=== PATIENT | male | born 1970 | race Caucasian/White ===

== ENCOUNTER 2016-11-09 12:49 | Inpatient (IN) | payer MEDICAID ==
[~2016-11-09] VITALS: Ht 172.7 cm; Wt 95.0 kg
[2016-11-09] MEDS ORDERED: SODIUM CHLORIDE 0.9% 1L BAG IV* STA (13:23)
[2016-11-09] MEDS ORDERED: VANCOMYCIN 1 GM (PMX) 250 ML IVPB STA (13:23)
[2016-11-09] MEDS ORDERED: morphine 4 MG/ML VIAL IV STA (13:23)
[2016-11-09] MEDS ORDERED: PIPER-TAZO 3.375 GM IV (PMX) 100 ML IVPB STA (13:23)
[2016-11-09] MEDS ORDERED: ONDANSETRON 4 MG INJ IV STA (13:23)
[2016-11-09] MEDS ORDERED: LOSA25TA5 PO (14:04)
[2016-11-09] MEDS ORDERED: ASPI-664 PO (14:04)
[2016-11-09 14:10] LABS: ADD SCAN DIFF NO
--- NOTE | 2016-11-09 14:10 | RADRPT ---
PROCEDURE: XR Chest. CLINICAL INDICATION: Sepsis. TECHNIQUE: Single frontal view of the chest was obtained COMPARISON: None FINDINGS: The soft tissues are normal. See there are osteophytes in the thoracic spine. The heart is enlarge d. The cardiomediastinal silhouette and hilar structures are normal. The pulmonary vasculature is n ormal. There is a left-sided aorta. The lungs are clear. The costophrenic angles are normal. IMPRESSION: 1. Cardiomegaly. 2. Spondylosis of the thoracic spine. RPTAT:AAJJ Physician Danni Date Time Electronically viewed and signed by Physician Danni on 11/09/2016 14:10 /
[2016-11-09 14:11] LABS: BASOPHILS % 0.4 % (0.0-2.0); EOSINOPHILS # 0.2 10^3/ul (0.0-0.5); HEMOGLOBIN 11.3 g/dl (14.0-18.0); LYMPHOCYTES # 1.7 10^3/ul (0.8-2.9); LYMPHOCYTES % 19.4 % (15.0-51.0); MEAN CORPUSCULAR HEMOGLOBIN 26.9 pg (29.0-33.0); MEAN CORPUSCULAR HGB CONC 33.2 g/dl (32.0-37.0); MONOCYTE # 0.8 10^3/ul (0.3-0.9); MONOCYTES % 9.6 % (0.0-11.0); NEUTROPHIL # 5.8 10^3/ul (1.6-7.5); NEUTROPHILS % 67.9 % (39.0-77.0); PLATELET COUNT 228 10^3/UL (140-415); RED CELL DISTRIBUTION WIDTH 13.6 % (11.5-14.5); WHITE BLOOD COUNT 8.6 10^3/ul (4.8-10.8)
[2016-11-09 14:25] LABS: ALBUMIN 3.6 g/dl (3.3-4.9); CHLORIDE 103 mmol/L (97-110); INR 1.18; PROTIME 15.1 Sec (12.2-14.2); PT RATIO 1.2
[2016-11-09 14:26] LABS: POTASSIUM 3.7 mmol/L (3.5-5.1); SODIUM 140 mmol/L (135-144)
[2016-11-09 14:28] LABS: ALKALINE PHOSPHATASE 125 IU/L (42-121); ANION GAP 15 (8-16); ASPARTATE AMINO TRANSFERASE 20 IU/L (15-46); BILIRUBIN,INDIRECT 0.3 mg/dl (0-1.1); BILIRUBIN,TOTAL 0.3 mg/dl (0.2-1.3); BLOOD UREA NITROGEN 15 mg/dl (7-20); CARBON DIOXIDE 26 mmol/L (21-31); CREATININE 1.49 mg/dl (0.61-1.24); GLUCOSE 102 mg/dl (70-220); TOTAL PROTEIN 7.6 g/dl (6.1-8.1)
[2016-11-09 14:29] LABS: ALANINE AMINOTRANSFERASE 26 IU/L (13-69); CALCIUM 9.1 mg/dl (8.4-10.2)
[2016-11-09 14:30] LABS: PARTIAL THROMBOPLASTIN TIME 126.1 Sec (25.0-35.0)
[2016-11-09] MEDS ORDERED: ACETAMINOPHEN 325 MG TAB PO PRN (14:30)
[2016-11-09] MEDS ORDERED: ONDANSETRON 4 MG INJ IV PRN (14:30)
[2016-11-09 14:45] LABS: TROPONIN-I < 0.012 ng/ml (0.00-0.12)
--- NOTE | 2016-11-09 15:22 | ERA ---
ER Documentation Chief Complaint Date/Time DATE: 11/09/16 TIME: 15:18 Chief Complaint right leg pain ( varicose veins) HPI Patient is a 46-year-old male with hypertension who presents with bilateral lower extremity ulcers. The patient has had these for years but they are worsening. He has tried penicillin in the past without help. He has arterial insufficiency. He was seen by the [place] [facility] and had arterial and venous ultrasounds done which showed arterial insufficiency and chronic partial DVT. There is significant pain and surrounding redness. ROS All systems reviewed and are negative except as per history of present illness. Medications Home Meds Reported Medications Losartan Potassium* (Losartan Potassium*) 25 Mg Tablet, 25 MG PO DAILY, TAB 11/09/16 Aspirin (Low Dose Aspirin) 81 Mg Tablet.dr, 81 MG PO DAILY, #30 TAB 11/09/16 Allergies Allergies: Coded Allergies: No Known Allergy (Unverified , 11/09/16) PMhx/Soc Hx Cardiac Disorders: Yes Hx Alcohol Use: No Hx Substance Use: No Hx Tobacco Use: No FmHx Family History: No diabetes Physical Exam Vitals Vital Signs Date Time Temp Pulse Resp B/P Pulse Ox O2 Delivery O2 Flow Rate FiO2 11/09/16 12:51 98.5 76 19 191/91 98 Physical Exam Const: No acute distress Head: Atraumatic Eyes: Normal Conjunctiva ENT: Normal External Ears, Nose and Mouth. Neck: Full range of motion..~ No meningismus. Resp: Clear to auscultation bilaterally Cardio: Regular rate and rhythm, no murmurs Abd: Soft, non tender, non distended. Normal bowel sounds Skin: Significant and large arterial insufficiency ulcers to the bilateral lower extremities right greater than left, there is surrounding erythema, the wounds are deep and go down to soft tissue and potentially even bone Back: No midline or flank tenderness Ext: No cyanosis, or edema Neur: Awake and alert Psych: Normal Mood and Affect Result Diagram: 11/09/16 1340 11/09/16 1340 Results 24 hrs Laboratory Tests Test 11/09/16 13:40 White Blood Count 8.610^3/ul Red Blood Count 4.2010^6/ul Hemoglobin 11.3g/dl Hematocrit 34.0% Mean Corpuscular Volume 81.0fl Mean Corpuscular Hemoglobin 26.9pg Mean Corpuscular Hemoglobin Concent 33.2g/dl Red Cell Distribution Width 13.6% Platelet Count 00676^3/UL Mean Platelet Volume 10.0fl Neutrophils % 67.9% Lymphocytes % 19.4% Monocytes % 9.6% Eosinophils % 2.0% Basophils % 0.4% Nucleated Red Blood Cells % 0.0/100WBC Neutrophils # 5.810^3/ul Lymphocytes # 1.710^3/ul Monocytes # 0.810^3/ul Eosinophils # 0.210^3/ul Basophils # 0.010^3/ul Nucleated Red Blood Cells # 0.010^3/ul Prothrombin Time 15.1Sec Prothrombin Time Ratio 1.2 INR International Normalized Ratio 1.18 Activated Partial Thromboplast Time 126.1Sec Sodium Level 140mmol/L Potassium Level 3.7mmol/L Chloride Level 103mmol/L Carbon Dioxide Level 26mmol/L Anion Gap 15 Blood Urea Nitrogen 15mg/dl Creatinine 1.49mg/dl Glucose Level 102mg/dl Lactic Acid Level 2.0mmol/L Calcium Level 9.1mg/dl Total Bilirubin 0.3mg/dl Direct Bilirubin 0.00mg/dl Indirect Bilirubin 0.3mg/dl Aspartate Amino Transf (AST/SGOT) 20IU/L Alanine Aminotransferase (ALT/SGPT) 26IU/L Alkaline Phosphatase 125IU/L Troponin I < 0.012ng/ml Total Protein 7.6g/dl Albumin 3.6g/dl Globulin 4.00g/dl Albumin/Globulin Ratio 0.90 Current Medications Medications (Trade) Dose Ordered Sig/Jacob Route PRN Reason Start Time Stop Time Status Last Admin Dose Admin Sodium Chloride 2950 ml 2,950 ml BOLUS OVER 2 HOURS STAT IV* 11/09/16 13:23 11/09/16 13:25 DC 11/09/16 14:34 Vancomycin HCl 250 ml @ 125 mls/hr ONCE STAT IVPB 11/09/16 13:23 11/09/16 15:22 Piperacillin Sod/ Tazobactam Sod (Zosyn 3.375gm/ 100 ml (Pmx)) 100 ml @ 200 mls/hr ONCE STAT IVPB 11/09/16 13:23 11/09/16 13:52 DC 11/09/16 14:33 Morphine Sulfate (morphine) 4 mg ONCE STAT IV 11/09/16 13:23 11/09/16 13:25 DC 11/09/16 14:33 Ondansetron HCl (Zofran Inj) 4 mg ONCE STAT IV 11/09/16 13:23 11/09/16 13:25 DC 11/09/16 14:33 Ondansetron HCl (Zofran Inj) 4 mg BRIDGE ORDER PRN IV NAUSEA AND/OR VOMITING 11/09/16 14:30 11/10/16 14:29 Acetaminophen (Tylenol Tab) 650 mg ER BRIDGE PRN PO MILD PAIN/FEVER 11/09/16 14:30 11/10/16 14:29 Labetalol HCl (Labetalol) 20 mg ONCE ONCE IV 11/09/16 15:30 11/09/16 15:31 Procedures/MDM Admit MDM: Patient's infectious symptoms have not stabilized and the patient is at risk of rapid decompensation. The patient will be admitted for careful hydration, antibiotic therapy, and infectious source control. Severe Sepsis criteria: Infectious source: Arterial leg ulcers End organ damage indicated by: Lactate 2.0 Sepsis Management: Time of recognition of sepsis: 13:40 Within 3 hours of recognition: Blood cultures x 2 before broad-spectrum antibiotics: Yes 30 ml/kg NS bolus Completed Initial lactate 2.0 Repeat lactate pending Time of recognition of septic shock: No septic shock Septic Shock Assessment: Any lactic acid > 4.0 No Persistent hypotension (SBP < 90 or 40 mmHg drop, MAP < 65) despite 30 mL/kg IV fluid bolus No Volume Re-assessment for Septic Shock (post 30 ml/kg bolus): No septic shock Persistent Hypotension Treatment: Comfort care No Central line Not Required Vasopressor started Not required I considered further perfusion assessment with CVP measurement, SCVO2, bedside ultrasound volume assessment, passive leg raise, trial of further fluid bolus. And proceeded with 30 ml/kg fluid bolus of NSS, broad spectrum antibiotics, and admission. The patient will likely benefit from inpatient prevention center consultation with intense wound care and possibly vascular consultation. Accepting Care Team Current data and ongoing care discussed. Admitting Physician: Dr. Dhaliwal from the panel team Bulb Sorter(s): None Outstanding Data: Culture results and repeat lactic acid Critical Care: Critical care time 35 minutes excluding all billable procedures Emergent fluid management while maintaining close respiratory support. Provision of immediate and broad-spectrum antibiotic therapy. Simultaneous assessment for possible sources in order to direct targeted therapy. Consideration for invasive and chemical support to prevent cardiopulmonary collapse. Departure Diagnosis: Primary Impression: Arterial leg ulcer Additional Impressions: Arterial insufficiency Severe sepsis Anemia Qualified Code: D64.9 - Anemia, unspecified type Condition: NILS Braga MD November 09, 2016 15:22
[2016-11-09] MEDS ORDERED: LABETALOL HCL 20MG INJ IV ONE (15:30)
[2016-11-09] MEDS ORDERED: hydrALAzine 20 MG INJ IV ONE (16:00)
[2016-11-09 16:18] VITALS: TEMP 98.5
[2016-11-09 16:56] VITALS: BP 179/86; RESP 18
[2016-11-09 17:14] VITALS: Ht 172.7 cm; Wt 95.0 kg
[2016-11-09] MEDS ORDERED: VANCOMYCIN IV PER PHARMACY XX SCH (18:00)
[2016-11-09] MEDS ORDERED: hydrALAzine 20 MG INJ IV PRN (18:00)
[2016-11-09] MEDS ORDERED: SOD CHLORIDE 0.9% 1,000 ML IV SCH (18:00)
--- NOTE | 2016-11-09 18:07 | HP ---
Date/Time of Note Date/Time of Note DATE: 11/09/16 TIME: 17:57 Assessment/Plan VTE Prophylaxis VTE Prophylaxis Intervention: heparin Assessment/Plan Assessment/Plan 46 yo M with chronic leg ulcers sent from clinic for 1. Sidra LE infected ulcers with cellulitis 2. Poorly controlled hypertension 3. Chronic partial DVT per report 4. Chronic PAD 5. REX r/o CKD PLAN: * admit for IVF and IV abx / wound cultures / MRI to r/o osteo / ID and podiatry consults * dual therapy antihypertensives / 2D Echo for cardiomegaly * Hold ACEi for now. Renally dose all meds. Serial labs. IVF. * If renal function doesn't improve, consider renal USS and nephro consult * LE venous dopplers / Heparin at prophylactic dose for now,if no urgent intervention will start full dose anticoagulation. PROPHYLAXIS: Heparin / Pepcid HPI/ROS Admit Date/Time Admit Date/Time November 09, 2016 at 14:15 Hx of Present Illness this is a 46 yo M who has had sidra leg ulcers for a while now. He had the first ulcer from an injury at work on his left leg and it has never completely healed since 2000. He was found to heva a DVT in that leg at about the same time. he was place on coumadin which he took for about 4 years after which he developed a spontaneous ulcer in the R leg. He has mainly been treating the ulcers with medications he gets from [place] and they have never completely healed. they get better and breakdown again. He finally went to the [place] [facility] a few days ago where he had venous and arterial studies that revealed a chronic DVT in his left leg and poor arterial supply in both legs. There was also concern that the ulcers were infected and so he was told to come to the ER to be evaluated. he's being admitted forn further workup and mgt. ROS ROS: CONSTITUTIONAL: denies fever, chills, weight loss, weight gain HEENT: denies headaches, any vertigo, any sore throat or rhinorrhea. Eyes: No double or blurred vision or eye pain. CARDIOVASCULAR: no chest discomfort, chest pain, irregular rhythm, tachycardia or diaphoresis. RESPIRATORY: denies cough or shortness of breath or wheezing. GASTROINTESTINAL: The patient denies any nausea, vomiting, diarrhea or abdominal pain. GENITOURINARY: denies dysuria, frequency, urgency or hematuria. NEUROLOGIC: denies weakness, dizziness, focal neurological change or headache. PSYCHIATRIC: denies history of depression in the past, any suicidal ideation. substance abuse. ENDOCRINE: denies polyuria, polydipsia or hot or cold intolerance. HEMATOLOGIC: denies history of easy bruising, anemia or eczema. PMH/Family/Social Past Medical History * Chronic LE ulcers * Prev DVT Past Surgical History * He has had a skin graft Social History Alcohol Use: none Smoking Status: Former smoker (quit 6 smoking) Drug Use: none Exam/Review of Systems Vital Signs Vitals VS - Last 72 Hours, by Label Date Time Temp Pulse Resp B/P Pulse Ox O2 Delivery O2 Flow Rate FiO2 11/09/16 16:56 97.5 87 18 179/86 100 11/09/16 16:18 98.5 82 18 164/92 98 Room Air 11/09/16 15:57 69 18 165/95 98 Room Air 11/09/16 15:31 73 16 185/97 98 Room Air 11/09/16 12:51 98.5 76 19 191/91 98 Vital Signs Date Time Temp Pulse Resp B/P Pulse Ox O2 Delivery O2 Flow Rate FiO2 11/09/16 16:56 97.5 87 18 179/86 100 11/09/16 16:18 Room Air Exam Exam GENERAL APPEARANCE: Well developed, well nourished, in no acute distress. SKIN: Gross inspection of the skin reveals no rashes, ulcerations or petechiae. HEENT: The sclerae were anicteric and conjunctivae were pink and moist. Extraocular movements were intact and pupils were equal, round, and reactive to light Posterior pharynx was clear of erythema or exudate NECK: Supple and symmetric. There was no thyroid enlargement, and no tenderness , or masses were felt. CHEST: Normal AP diameter and movement . LUNGS: Auscultation of the lungs revealed normal breath sounds without any other adventitious sounds or rubs. CARDIOVASCULAR: There was a regular rate and rhythm without any murmurs, gallops , rubs. The carotid pulses were normal and 2+ bilaterally without bruits. Radial pulses were 2+ and symmetric. ABDOMEN: Soft and nontender with normal bowel sounds. No ascites was noted. LYMPH NODES: No lymphadenopathy was appreciated in the neck. MUSCULOSKELETAL: There was no tenderness or effusions noted. Muscle strength and tone were normal. EXTREMITIES: Significant and large arterial insufficiency ulcers to the bilateral lower extremities right greater than left, there is surrounding erythema, the wounds are deep and go down to soft tissue and potentially even bone NEUROLOGIC: Alert and oriented x 3. Normal affect PSYCHIATRIC: Normal mood and affect, not suicidal, not homicidal, no hallucinations, normal insight Labs Result Diagram: 11/09/16 1340 11/09/16 1340 Procedures Procedures Laboratory Tests Test 11/09/16 13:40 11/09/16 15:55 White Blood Count 8.610^3/ul Red Blood Count 4.2010^6/ul Hemoglobin 11.3g/dl Hematocrit 34.0% Mean Corpuscular Volume 81.0fl Mean Corpuscular Hemoglobin 26.9pg Mean Corpuscular Hemoglobin Concent 33.2g/dl Red Cell Distribution Width 13.6% Platelet Count 05616^3/UL Mean Platelet Volume 10.0fl Neutrophils % 67.9% Lymphocytes % 19.4% Monocytes % 9.6% Eosinophils % 2.0% Basophils % 0.4% Nucleated Red Blood Cells % 0.0/100WBC Neutrophils # 5.810^3/ul Lymphocytes # 1.710^3/ul Monocytes # 0.810^3/ul Eosinophils # 0.210^3/ul Basophils # 0.010^3/ul Nucleated Red Blood Cells # 0.010^3/ul Prothrombin Time 15.1Sec Prothrombin Time Ratio 1.2 INR International Normalized Ratio 1.18 Activated Partial Thromboplast Time 126.1Sec Sodium Level 140mmol/L Potassium Level 3.7mmol/L Chloride Level 103mmol/L Carbon Dioxide Level 26mmol/L Anion Gap 15 Blood Urea Nitrogen 15mg/dl Creatinine 1.49mg/dl Glucose Level 102mg/dl Lactic Acid Level 2.0mmol/L 1.4mmol/L Calcium Level 9.1mg/dl Total Bilirubin 0.3mg/dl Direct Bilirubin 0.00mg/dl Indirect Bilirubin 0.3mg/dl Aspartate Amino Transf (AST/SGOT) 20IU/L Alanine Aminotransferase (ALT/SGPT) 26IU/L Alkaline Phosphatase 125IU/L Troponin I < 0.012ng/ml Total Protein 7.6g/dl Albumin 3.6g/dl Globulin 4.00g/dl Albumin/Globulin Ratio 0.90 ER INTERVENTIONS Medications (Trade) Dose Ordered Sig/Jacob Route PRN Reason Start Time Stop Time Status Last Admin Dose Admin Sodium Chloride 2950 ml 2,950 ml BOLUS OVER 2 HOURS STAT IV* 11/09/16 13:23 11/09/16 13:25 DC 11/09/16 14:34 2,950 ML Vancomycin HCl 250 ml @ 125 mls/hr ONCE STAT IVPB 11/09/16 13:23 11/09/16 15:22 DC 11/09/16 15:29 125 MLS/HR Piperacillin Sod/ Tazobactam Sod (Zosyn 3.375gm/ 100 ml (Pmx)) 100 ml @ 200 mls/hr ONCE STAT IVPB 11/09/16 13:23 11/09/16 13:52 DC 11/09/16 14:33 200 MLS/HR Morphine Sulfate (morphine) 4 mg ONCE STAT IV 11/09/16 13:23 11/09/16 13:25 DC 11/09/16 14:33 4 MG Ondansetron HCl (Zofran Inj) 4 mg ONCE STAT IV 11/09/16 13:23 11/09/16 13:25 DC 11/09/16 14:33 4 MG Ondansetron HCl (Zofran Inj) 4 mg BRIDGE ORDER PRN IV NAUSEA AND/OR VOMITING 11/09/16 14:30 11/10/16 14:29 Acetaminophen (Tylenol Tab) 650 mg ER BRIDGE PRN PO MILD PAIN/FEVER 11/09/16 14:30 11/10/16 14:29 Labetalol HCl (Labetalol) 20 mg ONCE ONCE IV 11/09/16 15:30 11/09/16 15:31 DC 11/09/16 15:30 20 MG Hydralazine HCl (Apresoline) 10 mg ONCE ONCE IV 11/09/16 16:00 11/09/16 16:01 DC 11/09/16 15:59 10 MG PROCEDURE: XR Chest. CLINICAL INDICATION: Sepsis. TECHNIQUE: Single frontal view of the chest was obtained COMPARISON: None FINDINGS: The soft tissues are normal. See there are osteophytes in the thoracic spine. The heart is enlarged. The cardiomediastinal silhouette and hilar structures are normal. The pulmonary vasculature is normal. There is a left-sided aorta. The lungs are clear. The costophrenic angles are normal. IMPRESSION: 1. Cardiomegaly. 2. Spondylosis of the thoracic spine. RPTAT:AAJJ Physician Danni Date Time Electronically viewed and signed by Robert Tellez Physician on 11/09/2016 14:10 JM/ CC: NILS BALBUENA MD I reviewed EKG Rate: Within normal limits Rhythm: sinus Note: No ST elevation or depressions noted concerning for acute ischemic event. NALDO CORTEZ November 09, 2016 18:07
[2016-11-09] MEDS: LEVOFLOXACIN 500MG/D5W (PMX) 100 ML IVPB SCH (18:47)
--- NOTE | 2016-11-09 18:59 | RADRPT ---
PROCEDURE: US bilateral lower extremity veins. CLINICAL INDICATION: Bilateral leg pain and swelling. TECHNIQUE: Multiple longitudinal and transverse images of the bilateral lower extremity veins were obtained with campbell scale and color Doppler imaging. The common femoral vein, femoral vein, and popl iteal vein were evaluated. 2D grayscale measurements with compression sonography, color Doppler, and pulsed Doppler with augmentation. COMPARISON: No prior studies are available for comparison. FINDINGS: The right common femoral vein demonstrates normal flow and compressibility. There is partial compre ssibility and partial flow in the upper right femoral vein consistent with chronic thrombus. The ri ght mid and lower femoral vein and right popliteal vein demonstrate normal flow and compressibility. The left common femoral, femoral and popliteal veins are normally compressible throughout. Color fl ow demonstrates normal filling of the vessels. Normal waveforms are visualized and there is normal response to augmentation. IMPRESSION: 1. 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 2. Otherwise normal bilateral lower extremity venous Doppler. RPTAT: QQ .Harjeet Dempsey MD, MD Date Time Electronically viewed and signed by .Harjeet Dempsey MD, on 11/09/2016 18:59 .R/
[2016-11-09] MEDS ORDERED: PENDING SANTYL ORDER FOR WOUND CARE XX PRN (19:00)
--- NOTE | 2016-11-09 19:00 | CONS ---
DATE OF ADMISSION: 11/09/2016 DATE OF CONSULTATION: 11/09/2016 TYPE OF CONSULTATION: Infectious disease. REASON FOR CONSULTATION: Antibiotic management. HISTORY OF PRESENT ILLNESS: Dallas Perez is a 46-year-old male who comes in with right leg pain and is being seen for antibiotic management. His past problems include: 1. Hypertension. 2. Arterial insufficiency. 3. Chronic partial DVT. 4. Congestive heart failure. 5. Renal insufficiency. 6. Bilateral lower extremity infected ulcers with cellulitis. The patient is followed by Dr. Hien hernandez in podiatric consultation. As noted, he comes in with significant pain and redness in the lower extremities. PAST MEDICAL HISTORY: Operations as outlined. FAMILY HISTORY: Noncontributory. SOCIAL HISTORY: He does not smoke, drink, or abuse drugs. ALLERGIES: NO KNOWN ALLERGIES. NONE TO PENICILLIN, SULFA, OR FOODS. MEDICATIONS: Per chart. REVIEW OF SYSTEMS: As per HPI. PHYSICAL EXAMINATION: GENERAL: The patient is a well-developed, well-nourished male who is complaining of leg pa in, otherwise in no acute distress. VITAL SIGNS: Stable. He is afebrile. SKIN: Significant large arterial insufficiency ulcers in both lower extremities, right greater than left, with surrounding erythema. HEENT: Within normal limits. NECK: Supple. LYMPH NODES: None palpable. CHEST: Decreased breath sounds at the bases. HEART: Without murmur or gallop. ABDOMEN: Soft, nontender without organosplenomegaly or masses. EXTREMITIES: As noted, bilateral cellulitis. He has wounds that are quite deep and go down to the soft tissue and possibly bone. BACK: Without flank tenderness. RECTAL AND GENITAL: Deferred. NEUROLOGIC: No focal neurological abnormalities. ANCILLARY LABORATORY DATA: White count 8.6, H and H 11.3 and 34, platelet count 228. BUN and creat inine 15/1.49. IMPRESSION AND PLAN: The patient was started on vancomycin and Zosyn for bilateral lower extremity cellulitis. He has no evidence of pneumonia. I concur with this choice. If there is anything to c ulture the wounds, and obviously that should be done, a wound culture has been ordered. MRIs of the left and right feet have also been ordered. I will dictate my findings to the hospitalist and also to Dr. Lamas. Dictated By: SANDIP STARR MD, JD/BARRY Conf#: [id number] [facility]#: [id number] CC: GOLD LAMAS DPM; NALDO CORTEZ MD;*End*
[2016-11-09 20:12] VITALS: BP 167/81; RESP 18
[2016-11-09] MEDS ORDERED: HEPARIN 5,000 UNIT/0.5 ML VIAL SC SCH (21:00)
[2016-11-09] MEDS: HYDROmorphONE 1 MG/ML SYG IV PRN (21:04)
[2016-11-09] MEDS: DOCUSATE SODIUM 250 MG CAP PO SCH (21:05)
[2016-11-09] MEDS: METOPROLOL 25 MG TAB PO SCH (21:05)
[2016-11-09] MEDS: NIFEdipine (XL) 30 MG TAB PO SCH (21:06)
[2016-11-09 22:00] VITALS: BP 155/75
[2016-11-09] MEDS ORDERED: VANCOMYCIN 1.25 GM in SOD CHLORIDE 0.9% 250 ML IVPB SCH (23:00)
[2016-11-10] MEDS: HYDROmorphONE 1 MG/ML SYG IV PRN ×4 (00:54→20:39)
[2016-11-10 03:34] LABS: ADD UMIC NO; URINE BILIRUBIN (Dip) NEGATIVE (NEGATIVE); URINE BLOOD (Dip) NEGATIVE (NEGATIVE); URINE COLOR LT. YELLOW (YELLOW); URINE GLUCOSE (Dip) NEGATIVE (NEGATIVE); URINE KETONES (Dip) NEGATIVE (NEGATIVE); URINE LEUKOCYTE ESTERASE (Dip) NEGATIVE (NEGATIVE); URINE NITRITE (Dip) NEGATIVE (NEGATIVE); URINE TOTAL PROTEIN (Dip) NEGATIVE (NEGATIVE); URINE UROBILINOGEN (Dip) 0.2 E.U./dL (0.1-1.0)
[2016-11-10] MEDS: HYDROCODONE/APAP (7.5/325) TAB PO PRN (04:05)
[2016-11-10 04:19] LABS: BARBITURATES Negative (NEGATIVE); BENZODIAZEPINES Negative (NEGATIVE); CANNABINOIDS Negative (NEGATIVE); COCAINE Negative (NEGATIVE); OPIATES Positive (NEGATIVE)
[2016-11-10 06:20] LABS: ADD SCAN DIFF NO
[2016-11-10 06:25] LABS: BASOPHILS % 0.2 % (0.0-2.0); EOSINOPHILS # 0.2 10^3/ul (0.0-0.5); HEMOGLOBIN 10.2 g/dl (14.0-18.0); LYMPHOCYTES # 1.5 10^3/ul (0.8-2.9); LYMPHOCYTES % 17.2 % (15.0-51.0); MEAN CORPUSCULAR HEMOGLOBIN 26.4 pg (29.0-33.0); MEAN CORPUSCULAR HGB CONC 31.9 g/dl (32.0-37.0); MEAN CORPUSCULAR VOLUME 82.9 fl (82.0-101.0); MEAN PLATELET VOLUME 9.8 fl (7.4-10.4); MONOCYTE # 0.8 10^3/ul (0.3-0.9); MONOCYTES % 8.5 % (0.0-11.0); NEUTROPHIL # 6.4 10^3/ul (1.6-7.5); NEUTROPHILS % 71.5 % (39.0-77.0); PLATELET COUNT 196 10^3/UL (140-415); RED BLOOD COUNT 3.86 10^6/ul (4.70-6.10); RED CELL DISTRIBUTION WIDTH 14.3 % (11.5-14.5); WHITE BLOOD COUNT 8.9 10^3/ul (4.8-10.8)
[2016-11-10 06:57] LABS: INR 1.32; PROTIME 16.5 Sec (12.2-14.2); PT RATIO 1.3
[2016-11-10 07:08] LABS: PARTIAL THROMBOPLASTIN TIME 117.6 Sec (25.0-35.0)
[2016-11-10 07:17] LABS: THYROID STIMULATING HORMONE 2.03 MIU/L (0.465-4.680)
[2016-11-10 07:24] LABS: CALCIUM 8.6 mg/dl (8.4-10.2); CHOL/HDL RATIO 4.8 RATIO; CREATININE 1.43 mg/dl (0.61-1.24); MAGNESIUM 1.8 mg/dl (1.7-2.5); PHOSPHORUS 3.9 mg/dl (2.5-4.9); POTASSIUM 4.2 mmol/L (3.5-5.1)
[2016-11-10 07:25] VITALS: BP 163/80; RESP 16
[2016-11-10] MEDS: ASPIRIN (EC) 81 MG TAB PO SCH (08:49)
[2016-11-10] MEDS: FAMOTIDINE 20 MG TAB PO SCH (08:49)
[2016-11-10] MEDS: METOPROLOL 25 MG TAB PO SCH ×2 (08:50→20:39)
[2016-11-10] MEDS: NIFEdipine (XL) 30 MG TAB PO SCH ×2 (08:50→20:39)
--- NOTE | 2016-11-10 11:38 | CONS ---
DATE OF ADMISSION: 11/09/2016 DATE OF CONSULTATION: 11/10/2016 TYPE OF CONSULTATION: Nephrology. REASON FOR CONSULTATION: Acute kidney injury, renal insufficiency. PHYSICIAN REQUESTING CONSULT: Dr. Dhaliwal. HISTORY OF PRESENT ILLNESS: This is a 46-year-old male with a past medical history of poorly contro lled hypertension, history of chronic lower extremity ulcers, and history of deep venous thrombosis who presents to [facility] for evaluation of worsening of his lower extremity. Th e patient was recently seen in clinic, was noted to have infected ulcers and cellulitis. He was bro ught to the [facility] for evaluation. Patient was subsequently admitted to [facility]. The patient states that he has had a long history of ulcer formations dating back to 4 or 5 ye ars ago where he was treated previously in [place]. The patient said the ulcers would improve; howev er they would then reform. The patient also revealed having chronic DVT and previously being on ant icoagulation. Upon admission to the hospital, the patient has been stable. There have been no reports of hemoptys is, hematemesis or hematochezia. In terms of the patient's renal history, the patient states that he is aware he has some renal insuf ficiency. He states that he has longstanding hypertension. Denies any recent episodes of rashes, a ny frothy urine, any contrast exposure or any NSAID use. The patient does admit to having a history of ulcers. The patient is taking Losartan in an outpatient setting. No other events noted. PAST MEDICAL HISTORY: History of hypertension, history of deep venous thrombosis, history of lower extremity ulcers. FAMILY HISTORY: Noncontributory. SOCIAL HISTORY: Does not drink, smoke or do drugs. MEDICATIONS: Have been reviewed. ALLERGIES: NO KNOWN DRUG ALLERGIES. REVIEW OF SYSTEMS: A 14-point review of systems was conducted. Pertinent positives in HPI, otherwi se negative. PHYSICAL EXAMINATION: VITAL SIGNS: Blood pressure 160/80, respirations 16, pulse 81, temperature 98.6. HEENT: Normocephalic. Pupils are reactive to light. NECK: Supple. HEART: Regular rate. LUNGS: Show diminished breath sounds at base. ABDOMEN: Soft, nontender to palpation. No rebound or guarding. EXTREMITIES: Noted with trace edema. Dressing over anterior bilateral wounds that are clean, dry, intact. NEUROLOGIC: No focal deficits. DERMATOLOGIC: No rashes. LABORATORY DATA: Shows sodium 141, potassium 4.2, chloride 112, BUN 14, creatinine 1.43. White cou nt 8.9, hemoglobin 10.2, hematocrit 32.0, platelet count 196. Urinalysis is bland. IMAGING STUDIES: Reviewed. ASSESSMENT AND PLAN: This is a 46-year-old male who presents with: 1. Renal insufficiency, likely chronic kidney disease due to hypertensive nephrosclerosis. The pat ient has a longstanding history of poorly controlled hypertension. The possibility of an acute glom erulonephritis, vasculitis or interstitial nephritis is less likely given the initial bland urinalys is. However, given the longstanding history of ulcers, a full evaluation needs to be done. Plan wo uld be to check a renal ultrasound to evaluate renal parenchyma. Will check UA with microanalysis t o see if there is any evidence of active sediment. Will check a protein/creatinine ratio, albumin/c reatinine ratio. Will also check a PTH, vitamin D25 level. Would otherwise continue supportive car e, renally dose meds, avoid nephrotoxins. 2. Hypertension. Blood pressure is currently elevated. Continue current blood pressure regimen. I would defer DEANNA inhibitor or ARB at this time. 3. Mineral bone disorder. We will check PTH, vitamin D25 level. Monitor calcium and phosphorus le vels. No need for phosphate binders at this time. 4. Anemia, likely of chronic disease. Monitor hemoglobin and hematocrit levels. 5. Bilateral lower extremity infected ulcer, cellulitis. Continue current antibiotic regimen. Fur ther evaluation including an MRI will be performed. Follow up with ID and podiatry. 6. History of deep venous thrombosis. Continue current medical management. 7. History of peripheral arterial disease. Continue current treatment plan. Follow up with podiat ry. Continue aspirin. Thank you, Dr. Dhaliwal, for this interesting consultation. It will be a pleasure to follow patient with you throughout the hospital course. Dictated By: JEREMIAS LEARY/BARRY Conf#: [id number] DID#: [id number]
--- NOTE | 2016-11-10 11:57 | RADRPT ---
PROCEDURE: US Renal CLINICAL INDICATION: Acute renal insufficiency. TECHNIQUE: Multiple sonographic images of the kidneys and bladder were obtained. Evaluation of th e kidneys and bladder was performed as well with campbell scale and color and Doppler evaluation using a curved array transducer. The images were reviewed on a high-resolution PACS workstation. COMPARISON: No prior studies are available for comparison. FINDINGS: The right kidney measures 10.6 cm. The left kidney measures 10.9 cm. There is normal echogenicity within the parenchyma of the kidneys bilaterally. There is no mass, calculus, or obstructive uropathy. No perinephric fluid collection is seen. Evaluation of the urinary bladder is unremarkable. IMPRESSION: 1. Unremarkable renal ultrasound. RPTAT: [facility] Physician Ian Date Time Electronically viewed and signed by Physician Ian on 11/10/2016 11:56 /
--- NOTE | 2016-11-10 13:29 | RADRPT ---
PROCEDURE: MRI OF THE RIGHT AND LEFT LOWER EXTREMITY CLINICAL INDICATION: Right and left lower extremity pain and swelling, ulcerations, concern for oste omyelitis TECHNIQUE: Multiple MRI images were obtained utilizing multiple sequences in multiple planes. Image s were interpreted on a high-resolution PACS system. COMPARISON: None available FINDINGS: Right lower extremity: A marker has been placed along the medial soft tissues approximately 6 cm above the tibiotalar joint . There is a large medial ulceration measuring 4 cm in anteroposterior dimension and 6 cm in supero inferior dimension with adjacent soft tissue swelling but no drainable fluid collection. There is f airly significant soft tissue swelling extending towards the ankle. There is no evidence of underlying osteomyelitis. There is no acute fracture. There is no evidence of tendon tear. Left lower extremity: A marker has been placed along the posterior soft tissues near the gastrocnemius myotendinous juncti on about 12 cm above the tibiotalar joint. Deep to this marker there is a large skin ulceration lucie suring about 3 cm in mediolateral dimension and 4 cm in superoinferior dimension with adjacent soft tissue swelling but no drainable fluid collection. A marker has been placed along the anteromedial aspect of the left lower extremity about 5 cm above the tibiotalar joint. There is adjacent soft tissue swelling without drainable fluid collection. T he ulceration measures about 3 cm in mediolateral dimension and 3 cm in superoinferior dimension. There is no evidence of underlying osteomyelitis. There is no acute fracture. There is no evidence of tendon tear. IMPRESSION: 1. Bilateral skin ulcerations involving both lower extremities below the knee (3 ulcerations in tot al) as described above. There is adjacent soft tissue swelling without drainable fluid collection. 2. No evidence of underlying osteomyelitis. RPTAT: UU .Archie Blake MD, Date Time Electronically viewed and signed by .Archie Blake MD, MD on 11/10/2016 13:29 .K/
[2016-11-10] MEDS: VANCOMYCIN 2 GM in SOD CHLORIDE 0.9% 500 ML IVPB SCH (14:04)
--- NOTE | 2016-11-10 14:44 | PN ---
DATE: 11/10/2016 SUBJECTIVE: No acute changes. The patient is awake, looks comfortable, no fevers. VITAL SIGNS: Stable. DIAGNOSTICS: Renal ultrasound was unremarkable. MRI of extremities pending. Ultrasound revealed ri ght femoral vein chronic thrombus. Chest x-ray on admission revealed cardiomegaly. ANTIMICROBIALS: The patient is on IV vancomycin and Levaquin. PHYSICAL EXAMINATION: GENERAL: This is a well-developed, well-nourished man who is in no distress. HEENT: Head atraumatic, normocephalic. Sclerae anicteric. Buccal mucosa dry. NECK: Supple, trachea midline. CHEST: Rise symmetrical. Breath sounds diminished to bases. HEART: S1, S2. ABDOMEN: Soft, bowel tones present. EXTREMITIES: Bilateral lower extremities erythema, edema and chronic wounds. ASSESSMENT: 1. Bilateral lower extremities, acute on chronic cellulitis. 2. Acute renal failure, likely on chronic kidney disease, Nephrology on case. 3. History of deep venous thrombosis. 4. Hypertension. 5. Anemia. PLAN: The patient remains stable, pending bilateral lower extremities MRI. Pending wound cultures. Continue on current antimicrobials. Dictated By: MARISELA BYNUM SPORTS NUTRITIONIST for SANDIP PRETTY/BARRY Conf#: [id number] DID#: [id number]
[2016-11-10] MEDS ORDERED: COLLAGENASE 30 GM TUBE TOP PRN (15:00)
[2016-11-10] MEDS: LEVOFLOXACIN 500MG/D5W (PMX) 100 ML IVPB SCH (17:36)
--- NOTE | 2016-11-10 18:15 | PN ---
DATE: 11/10/2016 SUBJECTIVE: No acute events overnight. OBJECTIVE VITAL SIGNS: Stable except the blood pressure systolic is running 155 to 179 systolic over 75 to 82 diastolic PHYSICAL EXAMINATION: GENERAL: The patient lying in bed, answering questions appropriately, in no acute distress. HEENT: Pupils equal, round, reactive to light. Extraocular muscles intact. NECK: Supple, no thyromegaly. LUNGS: Clear to auscultation bilaterally. CARDIOVASCULAR: S1, S2 heard. No rubs or gallops. ABDOMEN: Soft, nontender, nondistended. No rebound or guarding. MUSCULOSKELETAL: There are some large ulcers noted in the bilateral lower extremities, right greate r than left, with surrounding erythema. Wounds are deep and go down to soft tissue and potentially even to the bone. NEUROLOGIC: No focal deficits. LABORATORY DATA: CBC is normal. Basic metabolic panel is normal except the creatinine is 1.43. Ch olesterol panel was normal. Coags show PTT of 117. ASSESSMENT AND PLAN: This is a 46-year-old male coming in with bilateral lower extremity infected u lcers with cellulitis, hypertension and renal insufficiency. 1. Lower extremity cellulitis and ulceration. Get a wound care nurse consult. Continue IV antibio tics as well. Pain control medications as well. Follow up on final culture results. Follow up ID recommendations. 2. Renal insufficiency. Renal function, creatinine slightly elevated. Follow up renal recommendat ions. Monitor BUN and creatinine levels as well. 3. Hypertension. Blood pressure is on the high normal side. Continue current medications. Consid er increasing the dose. He is on beta josé miguel and hydralazine p.r.n. as well, also on nifedipine. Monitor for now. 4. Chronic peripheral artery disease. Again, continue wound care nurse recommendations for #1. Con stud driver vascular surgery consult if not better. 5. Gastrointestinal prophylaxis. Pepcid. 6. Deep venous thrombosis prophylaxis on heparin subQ. Dictated By: THALIA DHALIWAL Conf#: [id number] DID#: [id number]
[2016-11-10] MEDS: COLLAGENASE 30 GM TUBE TOP SCH (19:04)
[2016-11-10 20:22] VITALS: BP 145/77; RESP 18
[2016-11-10] MEDS: DOCUSATE SODIUM 250 MG CAP PO SCH (20:39)
[2016-11-11] VITALS (16 sets, daily range): BP systolic 149–158; BP diastolic 81–83; PULSE 68–80; RESP 15–24
[2016-11-11 00:10] LABS: ADD UMIC YES; URINE BILIRUBIN (Dip) NEGATIVE (NEGATIVE); URINE BLOOD (Dip) TRACE (NEGATIVE); URINE COLOR LT. YELLOW (YELLOW); URINE GLUCOSE (Dip) NEGATIVE (NEGATIVE); URINE KETONES (Dip) NEGATIVE (NEGATIVE); URINE LEUKOCYTE ESTERASE (Dip) NEGATIVE (NEGATIVE); URINE NITRITE (Dip) NEGATIVE (NEGATIVE); URINE TOTAL PROTEIN (Dip) NEGATIVE (NEGATIVE); URINE UROBILINOGEN (Dip) 0.2 E.U./dL (0.1-1.0)
[2016-11-11 00:27] LABS: URINE RBCS NONE SEEN /HPF (0)
--- NOTE | 2016-11-11 05:22 | CONS ---
DATE OF ADMISSION: 11/09/2016 DATE OF CONSULTATION: 11/10/2016 CHIEF COMPLAINT: Bilateral lower extremity ulceration. HISTORY OF PRESENT ILLNESS: This is a 46-year-old gentleman with chronic ulceration who presented t o the emergency room with increasing pain, swelling, and redness. The patient admitted for treatmen t of chronic venous ulcerations now with acute cellulitis and workup for deep infection and osteomye litis. The patient states history of deep vein thrombosis and had been on Coumadin in the past. He presented on vancomycin and Levaquin. PAST MEDICAL HISTORY: Deep vein thrombosis, prior anticoagulation therapy, hypertension, CHF, renal insufficiency, chronic lower extremity ulcerations and inflammation, venous stasis. FAMILY HISTORY: Noncontributory. SOCIAL HISTORY: Denies alcohol or recreational drugs. 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 REVIEW OF SYSTEMS: Swelling to bilateral lower extremity, pain to ulceration of right lower extremi ty. PHYSICAL EXAMINATION: VITAL SIGNS: Temperature 98.1, pulse 89, respiratory rate 18, blood pressure 140/77, pulse ox is 96 on room air. GENERAL: The patient alert, oriented, no acute distress. HEENT: Head is normocephalic, atraumatic. Trachea is midline. PULMONARY: Regular respiration, unlabored. EXTREMITIES: There are ulcerations bilateral lower extremities. Hair is present on bilateral legs. On the left medial, there is an ulceration measuring 5 x 3 cm. On the left lateral, 2 ulcerations approximately 2 cm2. On the right medial ankle, there was an ulceration, 6.3 cm. All wounds have periwound erythema, brawny appearing skin, venous stasis hyperpigmentation, and skin atrophy. There is slough present to the wounds and tenderness with palpation. No signs of lymphangitis. Cellulit is is extending approximately 1 cm from the wounds. The patient has 2+ popliteal, DP pulse bilatera lly. He has 5/5 dorsiflexion, plantar flexion. Normal sensation to tibial nerve distribution. LABORATORY DATA: Blood cultures no growth. WBC 8.9, hemoglobin 10.2, hematocrit 32, platelets 196. Sodium 141, potassium 4.2, chloride 112, CO2 23, BUN 14, creatinine 1.43. Foot MRI shows no evide nce of osteomyelitis. Renal ultrasound unremarkable. Venous ultrasound has a chronic thrombus uppe r right femoral vein. Chest x-ray: Cardiomegaly, spondylosis of the thoracic spine. ASSESSMENT: 1. Venous stasis with ulceration and inflammation. 2. Cellulitis. 3. Pain. 4. Thrombus right femoral vein. PLAN: The patient currently on broad spectrum IV antibiotics, vancomycin, and Levaquin. Obtain art erial noninvasives and may benefit from further diagnostic imaging if any abnormalities to rule out any aortoiliac disease. Recommend daily topical antiseptic precautions, cleansing with diluted Daki n's and application of Santyl ointment. We will await further studies. Thank you for this consultation. Dictated By: GOLD ANGLIN/BARRY Conf#: [id number] DID#: [id number]
[2016-11-11] MEDS: SENNA/DOCUSATE NA (8.6MG/50MG) TAB PO PRN (05:37)
[2016-11-11 06:20] LABS: ADD SCAN DIFF NO
[2016-11-11 06:37] LABS: BASOPHILS % 0.5 % (0.0-2.0); EOSINOPHILS # 0.3 10^3/ul (0.0-0.5); EOSINOPHILS % 3.7 % (0.0-7.0); HEMATOCRIT 34.7 % (42.0-52.0); HEMOGLOBIN 11.3 g/dl (14.0-18.0); LYMPHOCYTES # 1.7 10^3/ul (0.8-2.9); LYMPHOCYTES % 19.3 % (15.0-51.0); MEAN CORPUSCULAR HEMOGLOBIN 26.7 pg (29.0-33.0); MEAN CORPUSCULAR HGB CONC 32.6 g/dl (32.0-37.0); MEAN CORPUSCULAR VOLUME 81.8 fl (82.0-101.0); MEAN PLATELET VOLUME 9.4 fl (7.4-10.4); MONOCYTE # 0.8 10^3/ul (0.3-0.9); MONOCYTES % 8.9 % (0.0-11.0); NEUTROPHIL # 5.8 10^3/ul (1.6-7.5); NEUTROPHILS % 66.9 % (39.0-77.0); PLATELET COUNT 186 10^3/UL (140-415); RED BLOOD COUNT 4.24 10^6/ul (4.70-6.10); RED CELL DISTRIBUTION WIDTH 13.9 % (11.5-14.5); WHITE BLOOD COUNT 8.7 10^3/ul (4.8-10.8)
[2016-11-11 07:24] LABS: CREATININE 1.52 mg/dl (0.61-1.24); POTASSIUM 4.2 mmol/L (3.5-5.1)
[2016-11-11] MEDS: HYDROmorphONE 1 MG/ML SYG IV PRN ×2 (07:26→22:29)
[2016-11-11 07:52] LABS: MAGNESIUM 1.7 mg/dl (1.7-2.5); PHOSPHORUS 4.1 mg/dl (2.5-4.9)
[2016-11-11] MEDS: SODIUM HYPOCHLORITE 1/40% 1L IRRIG IRR SCH (08:51)
[2016-11-11] MEDS: ASPIRIN (EC) 81 MG TAB PO SCH (08:52)
[2016-11-11] MEDS: METOPROLOL 25 MG TAB PO SCH ×2 (08:53→21:01)
[2016-11-11] MEDS: FAMOTIDINE 20 MG TAB PO SCH (08:53)
[2016-11-11] MEDS: NIFEdipine (XL) 30 MG TAB PO SCH ×2 (08:53→21:01)
[2016-11-11] MEDS: COLLAGENASE 30 GM TUBE TOP SCH (08:55)
[2016-11-11] MEDS: HEPARIN 5,000 UNIT/0.5 ML VIAL SC SCH ×2 (08:56→21:05)
--- NOTE | 2016-11-11 09:23 | RADRPT ---
PROCEDURE: US Lower extremity arterial. CLINICAL INDICATION: Bilateral lower extremity ulcers. Peripheral arterial disease. TECHNIQUE: Multiple sonographic images of the bilateral lower extremity arteries was obtained util izing grayscale, color-flow, and doppler imaging. The images were reviewed on a PACS workstation. COMPARISON: Venous ultrasound dated 11/09/2016. FINDINGS: Velocities and waveforms were obtained as described below. RIGHT LEG: Common femoral artery: 44.5 cm/s; monophasic waveforms Proximal superficial femoral artery: 67.4 cm/s; monophasic waveforms Mid superficial femoral artery: 45.7 cm/s; monophasic waveforms Distal superficial femoral artery: 35.9 cm/s; monophasic waveforms Popliteal artery: 31.9 cm/s; monophasic waveforms Posterior tibial artery: 27.2 cm/s; monophasic waveforms Dorsalis pedis artery: 24.6 cm/s; monophasic waveforms LEFT LEG: Common femoral artery: 45.3 cm/s; monophasic waveforms Proximal superficial femoral artery: 53.2 cm/s; monophasic waveforms Mid superficial femoral artery: 60.7 cm/s; monophasic waveforms Distal superficial femoral artery: 52 cm/s; monophasic waveforms Popliteal artery: 47.5 cm/s; monophasic waveforms Posterior tibial artery: 46.7 cm/s; monophasic waveforms Dorsalis pedis artery: 25.9 cm/s; monophasic waveforms There is extensive atherosclerotic disease throughout the lower extremities bilaterally. IMPRESSION: 1. Diffusely abnormal examination with dampened, monophasic waveforms throughout the lower extremit ies bilaterally. This is highly suggestive of inflow disease and can be further evaluated with CT an giography of the abdomen and pelvis with lower extremity runoff. 2. No evidence of flow-limiting stenosis or thrombosis. RPTAT: GG .Guanakito Parks MD, MD Date Time Electronically viewed and signed by .Guanakito Parks MD, MD on 11/11/2016 09:23 .P/
[2016-11-11] MEDS: VANCOMYCIN 2 GM in SOD CHLORIDE 0.9% 500 ML IVPB SCH (11:34)
--- NOTE | 2016-11-11 11:34 | PN ---
DATE: 11/11/2016 SUBJECTIVE: The patient is stable, no acute events overnight. No fevers, chills, nausea, vomiting, or shortness of breath. OBJECTIVE: VITAL SIGNS: Blood pressure is 156/81, respiratory rate 20, pulse 70, temperature 97.9. HEENT: Head is normocephalic. NECK: Supple. HEART: Regular rate. LUNGS: Show diminished breath sounds at base. ABDOMEN: Soft, nontender to palpation without rebound or guarding. EXTREMITIES: Negative for clubbing, cyanosis. ____dressing clean, dry, intact. DERMATOLOGIC: No rashes. MUSCULOSKELETAL: No joint effusions. NEUROLOGIC: No change in exam. MEDICATIONS: The patient's medications have been reviewed. LABORATORY DATA: Showed sodium 136, potassium 4.2, BUN 18, creatinine 1.52. White count is 8.7, he moglobin 9.2, hematocrit 31.7, platelet count 186. Urinalysis was reviewed, no active sediment, no significant proteinuria. Renal ultrasound shows normal kidney size, normal parenchyma. MRI shows n o evidence of osteomyelitis. ASSESSMENT AND PLAN: 1. Chronic kidney disease likely secondary to hypertensive nephrosclerosis. The patient has no sherita dence of acute glomerulonephritis, vasculitis or interstitial nephritis based on clinical presentati on and workup at this time. The patient's urinalysis is bland. Renal ultrasound shows normal kidne y size, no evidence of hydronephrosis. The patient has no significant proteinuria. At this point, would continue current treatment plan. Continue current blood pressure regimen, adjust medications gradually to avoid significant hemodynamic fluctuations. Once renal function is stable, would start the patient on DEANNA inhibitor. 2. Hypertension. Continue current blood pressure regimen, adjust as needed. Defer DEANNA inhibitor o r ARB at this time. 3. Mineral bone disorder. The patient's PTH and vitamin D-25 levels are pending. 4. Anemia of chronic disease. Continue to monitor H and H levels. 5. Bilateral lower extremity ulcer, cellulitis. Continue current antibiotic regimen and monitor th is. 6. History of peripheral vascular disease. Continue medical management. 7. Thrombosis of right femoral vein, chronic. Continue to monitor. Dictated By: JEREMIAS LEARY/BARRY Conf#: [id number] DID#: [id number]
--- NOTE | 2016-11-11 14:04 | CONS ---
Date/Time of Note Date/Time of Note DATE: 11/11/16 TIME: 14:02 Assessment/Plan Assessment/Plan Chief Complaint/Hosp Course SUBJECTIVE: No acute changes. The patient is awake, looks comfortable, no fevers. ANTIMICROBIALS: The patient is on IV vancomycin and Levaquin. PHYSICAL EXAMINATION: GENERAL: This is a well-developed, well-nourished man who is in no distress. HEENT: Head atraumatic, normocephalic. Sclerae anicteric. Buccal mucosa dry. NECK: Supple, trachea midline. CHEST: Rise symmetrical. Breath sounds diminished to bases. HEART: S1, S2. ABDOMEN: Soft, bowel tones present. EXTREMITIES: Bilateral lower extremities erythema, edema and chronic wounds. ASSESSMENT: 1. Bilateral lower extremities, acute on chronic cellulitis, chronic venous stasis. 2. Acute renal failure, likely on chronic kidney disease, Nephrology on case. 3. History of deep venous thrombosis. 4. Hypertension. 5. Anemia. PLAN: The patient remains stable, pending wound cultures. Continue on current antimicrobials. F/u podiatry rec-s DW pt/staff Problems: Consultation Date/Type/Reason Admit Date/Time November 09, 2016 at 14:15 Initial Consult Date Type of Consultation: ID Exam/Review of Systems Vital Signs Vitals Vital Signs Date Time Temp Pulse Resp B/P Pulse Ox O2 Delivery O2 Flow Rate FiO2 11/11/16 08:19 97.9 70 20 156/81 97 11/09/16 16:18 Room Air Intake and Output 11/10/16 11/10/16 11/11/16 15:00 23:00 07:00 Intake Total 1452 ml 600 ml Output Total 700 ml Balance 1452 ml -100 ml Results Result Diagram: 11/11/16 0547 11/11/16 0547 Results 24 hrs Laboratory Tests Test 11/10/16 22:00 11/11/16 05:47 Urine Color LT. YELLOW Urine Clarity CLEAR Urine pH 7.0 Urine Specific [place] 1.010 Urine Ketones NEGATIVE Urine Nitrite NEGATIVE Urine Bilirubin NEGATIVE Urine Urobilinogen 0.2 E.U./dL Urine Leukocyte Esterase NEGATIVE Urine Microscopic RBC NONE SEEN Urine Microscopic WBC NONE SEEN Urine Hemoglobin TRACE Urine Random Creatinine 33.82 Urine Random Sodium 135 H Urine Glucose NEGATIVE Urine Total Protein 21.0 H White Blood Count 8.7 Red Blood Count 4.24 L Hemoglobin 11.3 L Hematocrit 34.7 L Mean Corpuscular Volume 81.8 L Mean Corpuscular Hemoglobin 26.7 L Mean Corpuscular Hemoglobin Concent 32.6 Red Cell Distribution Width 13.9 Platelet Count 186 Mean Platelet Volume 9.4 Neutrophils % 66.9 Lymphocytes % 19.3 Monocytes % 8.9 Eosinophils % 3.7 Basophils % 0.5 Nucleated Red Blood Cells % 0.0 Neutrophils # 5.8 Lymphocytes # 1.7 Monocytes # 0.8 Eosinophils # 0.3 Basophils # 0.0 Nucleated Red Blood Cells # 0.0 Sodium Level 136 Potassium Level 4.2 Chloride Level 105 Carbon Dioxide Level 25 Anion Gap 10 Blood Urea Nitrogen 18 Creatinine 1.52 H Glucose Level 104 Calcium Level 9.0 Phosphorus Level 4.1 Magnesium Level 1.7 Medications Medications Current Medications Aspirin 81 mg 81 mg DAILY PO Last administered on 11/11/16 08:52; Admin Dose 81 MG; Start 11/10/16 at 09:00 Levofloxacin/ Dextrose (Levaquin 500mg/ D5W 100 ml (Pmx)) 100 ml @ 100 mls/hr Q24H IVPB Last administered on 11/10/16 17:36; Admin Dose 100 MLS/HR; Start 11/09/16 at 18:00 Metoprolol Tartrate (Lopressor) 25 mg BID PO Last administered on 11/11/16 08: 53; Admin Dose 25 MG; Start 11/09/16 at 21:00 Hydralazine HCl (Apresoline) 10 mg Q6H PRN IV sbp>160mmhg; Start 11/09/16 at 18: 00 Famotidine (Pepcid) 20 mg DAILY PO Last administered on 11/11/16 08:53; Admin Dose 20 MG; Start 11/10/16 at 09:00 Docusate Sodium (Colace) 250 mg HS PO Last administered on 11/10/16 20:39; Admin Dose 250 MG; Start 11/09/16 at 21:00 Nifedipine (Procardia Xl) 30 mg BID PO Last administered on 11/11/16 08:53; Admin Dose 30 MG; Start 11/09/16 at 21:00 Acetaminophen/ Hydrocodone Bitart ([place] (7.5-325)) 1 tab Q6H PRN PO pain Last administered on 11/10/16 04:05; Admin Dose 1 TAB; Start 11/09/16 at 20:00 Senna/Docusate Sodium (Senokot-S) 1 tab Q6H PRN PO pain Last administered on 05:37; Admin Dose 1 TAB; Start 11/09/16 at 20:00 Hydromorphone HCl 0.5 mg 0.5 mg Q4H PRN IV PAIN Last administered on 11/11/16 07:26; Admin Dose 0.5 MG; Start 11/09/16 at 20:00 Vancomycin HCl/ Sodium Chloride (Vancocin/NS) 500 ml @ 125 mls/hr Q24H IVPB Last administered on 11/11/16 11:34; Admin Dose 125 MLS/HR; Start 11/10/16 at 11: 00 Heparin Sodium (Porcine) (Heparin (5000 Units/0.5 ml)) 5,000 unit BID SC ; Start 11/11/16 at 09:00 Collagenase (Santyl) 1 applic DAILY TOP Last administered on 11/10/16 19:04; Admin Dose 1 APPLIC; Start 11/10/16 at 15:00 Collagenase (Santyl) 1 applic PRN PRN TOP WOUND CARE; Start 11/10/16 at 15:00 Sodium Hypochlorite (Dakin'S (Dilute 1/40%)) 1 applic DAILY IRR ; Start 11/11/16 at 09:00 MARISELA BYNUM NP November 11, 2016 14:03
--- NOTE | 2016-11-11 14:20 | PN ---
Date/Time of Note Date/Time of Note DATE: 11/11/16 TIME: 14:15 Assessment/Plan VTE Prophylaxis VTE Prophylaxis Intervention: heparin Lines/Catheters IV Catheter Type (from Nrsg): Saline Lock Assessment/Plan Chief Complaint/Hosp Course ASSESSMENT AND PLAN: 46-year-old male coming in with bilateral lower extremity infected ulcers with cellulitis, hypertension and renal insufficiency. 1. Lower extremity cellulitis and ulceration - pt followed by podiatry and [facility] surgery teams. MRI, arterial and venous studies performed of LE's. - for CT angio w/ runoff today per [facility] surgery rec's to better assess vasculature LE . - f/u wound care nurse consult rec's as well - Continue IV antibiotics as well. Pain control medications as well. - Follow up on final culture results. - Follow up ID recommendations. 2. Renal insufficiency. Renal function, creatinine slightly elevated. Follow up renal recommendations. Monitor BUN and creatinine levels as well. 3. Hypertension. Blood pressure is on the high normal side. Continue current medications. Consider increasing the dose. He is on beta josé miguel and hydralazine p.r.n. as well, also on nifedipine. Monitor for now. 4. Chronic peripheral artery disease. Again, continue wound care nurse recommendations for #1. Consider vascular surgery consult if not better. 5. Gastrointestinal prophylaxis. Pepcid. 6. Deep venous thrombosis prophylaxis on heparin subQ. Problems: Subjective 24 Hr Interval Summary Free Text/Dictation No acute events overnight. Had vascular studies performed yesterday. Being seen by vascular surgery team now. Exam/Review of Systems Vital Signs Vitals Vital Signs Date Time Temp Pulse Resp B/P Pulse Ox O2 Delivery O2 Flow Rate FiO2 11/11/16 08:19 97.9 70 20 156/81 97 11/09/16 16:18 Room Air Intake and Output 11/10/16 11/10/16 11/11/16 15:00 23:00 07:00 Intake Total 1452 ml 600 ml Output Total 700 ml Balance 1452 ml -100 ml Exam GENERAL: The patient lying in bed, answering questions appropriately, in no acute distress. HEENT: Pupils equal, round, reactive to light. Extraocular muscles intact. NECK: Supple, no thyromegaly. LUNGS: Clear to auscultation bilaterally. CARDIOVASCULAR: S1, S2 heard. No rubs or gallops. ABDOMEN: Soft, nontender, nondistended. No rebound or guarding. MUSCULOSKELETAL: There are some large ulcers noted in the bilateral lower extremities, right greater than left, with surrounding erythema. Wounds are deep and go down to soft tissue and potentially even to the bone. NEUROLOGIC: No focal deficits. Results Result Diagram: 11/11/16 0547 11/11/16 0547 Results 24 hrs Laboratory Tests Test 11/10/16 22:00 11/11/16 05:47 Urine Color LT. YELLOW Urine Clarity CLEAR Urine pH 7.0 Urine Specific [place] 1.010 Urine Ketones NEGATIVE Urine Nitrite NEGATIVE Urine Bilirubin NEGATIVE Urine Urobilinogen 0.2 E.U./dL Urine Leukocyte Esterase NEGATIVE Urine Microscopic RBC NONE SEEN Urine Microscopic WBC NONE SEEN Urine Hemoglobin TRACE Urine Random Creatinine 33.82 Urine Random Sodium 135 H Urine Glucose NEGATIVE Urine Total Protein 21.0 H White Blood Count 8.7 Red Blood Count 4.24 L Hemoglobin 11.3 L Hematocrit 34.7 L Mean Corpuscular Volume 81.8 L Mean Corpuscular Hemoglobin 26.7 L Mean Corpuscular Hemoglobin Concent 32.6 Red Cell Distribution Width 13.9 Platelet Count 186 Mean Platelet Volume 9.4 Neutrophils % 66.9 Lymphocytes % 19.3 Monocytes % 8.9 Eosinophils % 3.7 Basophils % 0.5 Nucleated Red Blood Cells % 0.0 Neutrophils # 5.8 Lymphocytes # 1.7 Monocytes # 0.8 Eosinophils # 0.3 Basophils # 0.0 Nucleated Red Blood Cells # 0.0 Sodium Level 136 Potassium Level 4.2 Chloride Level 105 Carbon Dioxide Level 25 Anion Gap 10 Blood Urea Nitrogen 18 Creatinine 1.52 H Glucose Level 104 Calcium Level 9.0 Phosphorus Level 4.1 Magnesium Level 1.7 Medications Medications Current Medications Aspirin 81 mg 81 mg DAILY PO Last administered on 11/11/16 08:52; Admin Dose 81 MG; Start 11/10/16 at 09:00 Levofloxacin/ Dextrose (Levaquin 500mg/ D5W 100 ml (Pmx)) 100 ml @ 100 mls/hr Q24H IVPB Last administered on 11/10/16 17:36; Admin Dose 100 MLS/HR; Start 11/09/16 at 18:00 Metoprolol Tartrate (Lopressor) 25 mg BID PO Last administered on 11/11/16 08: 53; Admin Dose 25 MG; Start 11/09/16 at 21:00 Hydralazine HCl (Apresoline) 10 mg Q6H PRN IV sbp>160mmhg; Start 11/09/16 at 18: 00 Famotidine (Pepcid) 20 mg DAILY PO Last administered on 11/11/16 08:53; Admin Dose 20 MG; Start 11/10/16 at 09:00 Docusate Sodium (Colace) 250 mg HS PO Last administered on 11/10/16 20:39; Admin Dose 250 MG; Start 11/09/16 at 21:00 Nifedipine (Procardia Xl) 30 mg BID PO Last administered on 11/11/16 08:53; Admin Dose 30 MG; Start 11/09/16 at 21:00 Acetaminophen/ Hydrocodone Bitart ([place] (7.5-325)) 1 tab Q6H PRN PO pain Last administered on 11/10/16 04:05; Admin Dose 1 TAB; Start 11/09/16 at 20:00 Senna/Docusate Sodium (Senokot-S) 1 tab Q6H PRN PO pain Last administered on 05:37; Admin Dose 1 TAB; Start 11/09/16 at 20:00 Hydromorphone HCl 0.5 mg 0.5 mg Q4H PRN IV PAIN Last administered on 11/11/16 07:26; Admin Dose 0.5 MG; Start 11/09/16 at 20:00 Vancomycin HCl/ Sodium Chloride (Vancocin/NS) 500 ml @ 125 mls/hr Q24H IVPB Last administered on 11/11/16 11:34; Admin Dose 125 MLS/HR; Start 11/10/16 at 11: 00 Heparin Sodium (Porcine) (Heparin (5000 Units/0.5 ml)) 5,000 unit BID SC ; Start 11/11/16 at 09:00 Collagenase (Santyl) 1 applic DAILY TOP Last administered on 11/10/16 19:04; Admin Dose 1 APPLIC; Start 11/10/16 at 15:00 Collagenase (Santyl) 1 applic PRN PRN TOP WOUND CARE; Start 11/10/16 at 15:00 Sodium Hypochlorite (Dakin'S (Dilute 1/40%)) 1 applic DAILY IRR ; Start 11/11/16 at 09:00 THALIA AARON November 11, 2016 14:20
[2016-11-11] MEDS: SOD CHLORIDE 0.9% 1,000 ML IV SCH ×2 (14:30→17:19)
[2016-11-11] MEDS ORDERED: SOD CHLORIDE 0.9% 1,000 ML IV ONE (14:30)
--- NOTE | 2016-11-11 14:32 | CONS ---
Date/Time of Note Date/Time of Note DATE: 11/11/16 TIME: 14:21 Assessment/Plan Assessment/Plan Problems: (1) Arterial insufficiency Status: Acute (2) Arterial leg ulcer Status: Acute (3) Anemia Status: Acute Qualifiers: Qualified Code: D64.9 - Anemia, unspecified type (4) Severe sepsis Status: Acute Additional Assessment/Plan Patient has monophasic wave forms in bilateral US Cr is 1.5 I would consider doing poissible CTA vs angio CT will use more contrast, so will plan for Abd aortogram runoff so we can use minimal contrast and do it. Patient Ulcer is venous stasis ulcer had bilateral GSV as well as SSV reflux as well as left leg incompitent perforators. Plan to have out pt venous ablation done which will really help healing his wound d/w patients family. will f.u Thank you Dr Cooley for consultation. Consultation Date/Type/Reason Admit Date/Time November 09, 2016 at 14:15 Date of Consultation: November 11, 2016 Reason for Consultation PAD and Venous disease. Hx of Present Illness Patient is 46 year old male with PMH of Severe venous stasis ulcer as well as PAD, went to vein clinic were he had US done and found to have monophasic bilateral waveforms. suggestive of aorto iliac diseae, he was sent to [facility] for that. he does have severe claudicaiotn , lifestyle limiting. CKD with cr 1.5. had venous statis ulcer bilateral legs. Constitutional: no complaints Social History Alcohol Use: none Smoking Status: Former smoker (quit 6 smoking) Drug Use: none Exam/Review of Systems Vital Signs Vitals Vital Signs Date Time Temp Pulse Resp B/P Pulse Ox O2 Delivery O2 Flow Rate FiO2 11/11/16 08:19 97.9 70 20 156/81 97 11/09/16 16:18 Room Air Intake and Output 11/10/16 11/10/16 11/11/16 14:59 22:59 06:59 Intake Total 1452 ml 600 ml Output Total 700 ml Balance 1452 ml -100 ml Exam Constitutional: alert, oriented Psych: no complaints Head: normocephalic Eyes: nl conjunctiva ENMT: nl external ears & nose Neck: non-tender, supple Respiratory: clear to auscultation Cardiovascular: regular rate and rhythm Gastrointestinal: soft Musculoskeletal: nl extremities to inspection Extremities: normal pulses Results Result Diagram: 11/11/16 0547 11/11/16 0547 Results 24 hrs Laboratory Tests Test 11/10/16 22:00 11/11/16 05:47 Urine Color LT. YELLOW Urine Clarity CLEAR Urine pH 7.0 Urine Specific [place] 1.010 Urine Ketones NEGATIVE Urine Nitrite NEGATIVE Urine Bilirubin NEGATIVE Urine Urobilinogen 0.2 E.U./dL Urine Leukocyte Esterase NEGATIVE Urine Microscopic RBC NONE SEEN Urine Microscopic WBC NONE SEEN Urine Hemoglobin TRACE Urine Random Creatinine 33.82 Urine Random Sodium 135 H Urine Glucose NEGATIVE Urine Total Protein 21.0 H White Blood Count 8.7 Red Blood Count 4.24 L Hemoglobin 11.3 L Hematocrit 34.7 L Mean Corpuscular Volume 81.8 L Mean Corpuscular Hemoglobin 26.7 L Mean Corpuscular Hemoglobin Concent 32.6 Red Cell Distribution Width 13.9 Platelet Count 186 Mean Platelet Volume 9.4 Neutrophils % 66.9 Lymphocytes % 19.3 Monocytes % 8.9 Eosinophils % 3.7 Basophils % 0.5 Nucleated Red Blood Cells % 0.0 Neutrophils # 5.8 Lymphocytes # 1.7 Monocytes # 0.8 Eosinophils # 0.3 Basophils # 0.0 Nucleated Red Blood Cells # 0.0 Sodium Level 136 Potassium Level 4.2 Chloride Level 105 Carbon Dioxide Level 25 Anion Gap 10 Blood Urea Nitrogen 18 Creatinine 1.52 H Glucose Level 104 Calcium Level 9.0 Phosphorus Level 4.1 Magnesium Level 1.7 Medications Medications Current Medications Aspirin 81 mg 81 mg DAILY PO Last administered on 11/11/16 08:52; Admin Dose 81 MG; Start 11/10/16 at 09:00 Levofloxacin/ Dextrose (Levaquin 500mg/ D5W 100 ml (Pmx)) 100 ml @ 100 mls/hr Q24H IVPB Last administered on 11/10/16 17:36; Admin Dose 100 MLS/HR; Start 11/09/16 at 18:00 Metoprolol Tartrate (Lopressor) 25 mg BID PO Last administered on 11/11/16 08: 53; Admin Dose 25 MG; Start 11/09/16 at 21:00 Hydralazine HCl (Apresoline) 10 mg Q6H PRN IV sbp>160mmhg; Start 11/09/16 at 18: 00 Famotidine (Pepcid) 20 mg DAILY PO Last administered on 11/11/16 08:53; Admin Dose 20 MG; Start 11/10/16 at 09:00 Docusate Sodium (Colace) 250 mg HS PO Last administered on 11/10/16 20:39; Admin Dose 250 MG; Start 11/09/16 at 21:00 Nifedipine (Procardia Xl) 30 mg BID PO Last administered on 11/11/16 08:53; Admin Dose 30 MG; Start 11/09/16 at 21:00 Acetaminophen/ Hydrocodone Bitart ([place] (7.5-325)) 1 tab Q6H PRN PO pain Last administered on 11/10/16 04:05; Admin Dose 1 TAB; Start 11/09/16 at 20:00 Senna/Docusate Sodium (Senokot-S) 1 tab Q6H PRN PO pain Last administered on 05:37; Admin Dose 1 TAB; Start 11/09/16 at 20:00 Hydromorphone HCl 0.5 mg 0.5 mg Q4H PRN IV PAIN Last administered on 11/11/16 07:26; Admin Dose 0.5 MG; Start 11/09/16 at 20:00 Vancomycin HCl/ Sodium Chloride (Vancocin/NS) 500 ml @ 125 mls/hr Q24H IVPB Last administered on 11/11/16 11:34; Admin Dose 125 MLS/HR; Start 11/10/16 at 11: 00 Heparin Sodium (Porcine) (Heparin (5000 Units/0.5 ml)) 5,000 unit BID SC ; Start 11/11/16 at 09:00 Collagenase (Santyl) 1 applic DAILY TOP Last administered on 11/10/16 19:04; Admin Dose 1 APPLIC; Start 11/10/16 at 15:00 Collagenase (Santyl) 1 applic PRN PRN TOP WOUND CARE; Start 11/10/16 at 15:00 Sodium Hypochlorite ([place] ([place] 1/40%)) 1 applic DAILY IRR ; Start 11/11/16 at 09:00 CATRACHITO MOLINA MD November 11, 2016 14:32
[2016-11-11] MEDS ORDERED: IODIXANOL LOCM 100 ML BTL ONE ×2 (15:10→16:20)
[2016-11-11] MEDS ORDERED: LIDOCAINE 1% (MDV) 20 ML INJ ONE (15:10)
[2016-11-11] MEDS ORDERED: NITROGLYCERIN (IC) 100 MCG/ML INJ ONE (15:32)
[2016-11-11] MEDS ORDERED: VERAPAMIL 5 MG INJ ONE (15:32)
[2016-11-11] MEDS ORDERED: HEPARIN 1000 UNITS/ML 10 ML INJ ONE (15:32)
[2016-11-11] MEDS ORDERED: IODIXANOL LOCM 50 ML BTL ONE (16:36)
[2016-11-11] MEDS ORDERED: FENTAnyl 50 MCG/ML VIAL ONE (17:02)
[2016-11-11] MEDS: HYDROCODONE/APAP (7.5/325) TAB PO PRN (18:49)
[2016-11-11] MEDS: LEVOFLOXACIN 500MG/D5W (PMX) 100 ML IVPB SCH (20:56)
[2016-11-11] MEDS: DOCUSATE SODIUM 250 MG CAP PO SCH (21:00)
[2016-11-12] MEDS: SOD CHLORIDE 0.9% 1,000 ML IV SCH ×4 (00:25→10:24)
[2016-11-12] MEDS: HYDROmorphONE 1 MG/ML SYG IV PRN ×3 (00:27→22:40)
--- NOTE | 2016-11-12 03:21 | SP ---
DATE OF PROCEDURE: 11/11/2016 INDICATIONS FOR THE PROCEDURE: Severe bilateral lower extremity claudication. PROCEDURES: 1. Abdominal aortogram with runoff. 2. Ultrasound-guided access of the artery. 3. Subclavian angiography. 4. Aortic arch angiography. 5. Subclavian angiography. 6. Aortic root angiography. PROCEDURE DETAILS: After informed consent, the patient was brought to cardiac catheterization lab. The patient came into the hospital with bilateral lower extremity claudication. Ultrasound showed monophasic waveform of the bilateral SFA, likely aortoiliac disease. The patient's creatinine is 1.5. The patient has been explained in detail regarding possible complications of the renal including renal failure and going onto hemodialysis. The patient and son Sumanth both agreed for the procedure. The patient was prepped and draped in supine position. Right radial artery was accessed. Initial access wire was introduced into the subclavian artery, but unable to pass from the subclavian. Initial angiogram performed into the right subclavian found to have a completely occluded right subclavian artery. Followed by that, the left radial artery was accessed and angiogram was performed from the left radial artery into the abdominal aorta by a pigtail, 0.035 wire. Pigtail angiogram showed infrarenal aortic occlusion complete with barely showing right external iliac artery, but the left side there was no artery has been seen all throughout. Followed by that, we decided to engage the SALCEDO to see if we can YOLIS and SALCEDO, but there was no YOLIS has been seen and the SALCEDO was engaged, but not able to see the collaterals going to the leg. Followed by that, bilateral groins were accessed with a 4-Urdu catheter and bilateral groin angiography was performed. All the catheters were removed without any complication. CONTRAST: 175 mL COMPLICATIONS: None. BILATERAL LOWER EXTREMITY FINDINGS: 1. Abdominal aorta, 100% occluded infrarenal abdominal aorta to the iliac. 2. Bilateral common iliac artery proximal segment occlusion. 3. Bilateral external iliac artery and common femoral artery are patent. 4. Right proximal superficial femoral artery 100% occluded with the mid segment fills up with popliteal mild diffuse disease. 5. Right superficial femoral artery to popliteal with mild diffuse disease. 6. Below the knee, there is at least 2-vessel runoff seen. SUBCLAVIAN ANGIOGRAPHY. 1. 100% occluded innominate artery from ostium to before bifurcation of CCA, subclavian. Conclusion: 1. Occluded distal aorta to bilateral common iliac artery occlusion. 2. Collaterals might be SALCEDO as well as lumbars. 3. Occluded innominate artery before CCA. RECOMMENDATIONS: The patient has aortoiliac disease with complete occlusion of distal aorta which is chronic. Will require vascular surgery with aorto iliac bypass. May need possible CTA before surgery to planning. The patient's creatinine is 1.5. IV hydration needs to be continued. The patient will need possible major vascular surgery. The patient will need outpatient detailed workup of his preop cardiac and consider vascular surgery evaluation with possible major vascular surgery with bilateral aortoiliac bypass and consider percutaneous intervention of his left SFA [employer] versus bypass of the right SFA. We will discuss with the patient's son and patient. IV hydration for tomorrow and possible inpatient versus outpatient planning for the surgery. Dictated By: CATRACHITO PALACIO/BARRY Conf#: [id number] DID#: [id number] JENN
[2016-11-12 06:23] LABS: ADD SCAN DIFF NO
[2016-11-12] MEDS: SENNA/DOCUSATE NA (8.6MG/50MG) TAB PO PRN (06:28)
[2016-11-12 06:34] LABS: BASOPHILS % 0.4 % (0.0-2.0); EOSINOPHILS # 0.3 10^3/ul (0.0-0.5); EOSINOPHILS % 3.9 % (0.0-7.0); HEMATOCRIT 32.7 % (42.0-52.0); HEMOGLOBIN 10.5 g/dl (14.0-18.0); LYMPHOCYTES # 1.5 10^3/ul (0.8-2.9); LYMPHOCYTES % 20.4 % (15.0-51.0); MEAN CORPUSCULAR HEMOGLOBIN 26.2 pg (29.0-33.0); MEAN CORPUSCULAR HGB CONC 32.1 g/dl (32.0-37.0); MEAN CORPUSCULAR VOLUME 81.5 fl (82.0-101.0); MEAN PLATELET VOLUME 9.6 fl (7.4-10.4); MONOCYTE # 0.7 10^3/ul (0.3-0.9); MONOCYTES % 9.7 % (0.0-11.0); NEUTROPHIL # 4.7 10^3/ul (1.6-7.5); PLATELET COUNT 148 10^3/UL (140-415); RED BLOOD COUNT 4.01 10^6/ul (4.70-6.10); RED CELL DISTRIBUTION WIDTH 13.9 % (11.5-14.5); WHITE BLOOD COUNT 7.2 10^3/ul (4.8-10.8)
[2016-11-12 06:52] LABS: CALCIUM 8.7 mg/dl (8.4-10.2); CREATININE 1.41 mg/dl (0.61-1.24); POTASSIUM 3.9 mmol/L (3.5-5.1)
[2016-11-12 07:30] VITALS: BP 140/79; RESP 20
[2016-11-12] MEDS: COLLAGENASE 30 GM TUBE TOP SCH (09:00)
[2016-11-12] MEDS: SODIUM HYPOCHLORITE 1/40% 1L IRRIG IRR SCH (10:21)
[2016-11-12] MEDS: METOPROLOL 25 MG TAB PO SCH ×2 (10:22→20:22)
[2016-11-12] MEDS: FAMOTIDINE 20 MG TAB PO SCH (10:23)
[2016-11-12] MEDS: ASPIRIN (EC) 81 MG TAB PO SCH (10:23)
[2016-11-12] MEDS: NIFEdipine (XL) 30 MG TAB PO SCH ×2 (10:23→20:22)
--- NOTE | 2016-11-12 10:28 | PN ---
DATE: 11/12/2016 SUBJECTIVE: The patient yesterday underwent a lower extremity angiogram. The patient tolerated the procedure well. No other events noted. No hemoptysis, hematemesis or hematochezia. OBJECTIVE: VITAL SIGNS: Blood pressure 158/83, respirations 18, pulse 69, temperature 97.5. HEENT: Head is normocephalic. NECK: Supple. HEART: Regular rate. LUNGS: Show diminished breath sounds at the bases. ABDOMEN: Soft, nontender to palpation. No rebound or guarding. EXTREMITIES: Negative for clubbing, cyanosis. Positive dressing over anterior tibial ulcers, clean , dry and intact. DERMATOLOGIC: No rashes. MUSCULOSKELETAL: No joint effusions. NEUROLOGIC: No change in exam. MEDICATIONS: The patient's medications have been reviewed. LABORATORY DATA: Shows a sodium 139, potassium 3.9, BUN 20, creatinine 1.41. White count 7.2, hemo globin 10.5, hematocrit 32.7, platelet count is 148. ASSESSMENT AND PLAN: 1. Chronic kidney disease likely secondary to hypertensive nephrosclerosis. The patient's renal fu nction appears to be stable. We will monitor closely for any signs of contrast-associated nephropat hy. We will de-escalate fluids to 50 mL/hour and monitor closely. Otherwise continue supportive ca re, renally dose all meds, avoid nephrotoxins. 2. Hypertension. Continue current blood pressure regimen. Defer DEANNA inhibitor at this time. 3. Mineral bone disorder. Continue to monitor calcium and phosphorus levels. 4. Anemia of chronic disease. Continue to monitor hemoglobin and hematocrit levels. 5. Peripheral vascular disease. The patient is status post lower extremity angiogram which shows e vidence of severe arterial disease. We will defer to primary team, consider vascular surgery consul t. Continue medical management. 6. Thrombosis of right the femoral vein. 7. Lower extremity cellulitis. Continue current antibiotic regimen. Dictated By: JEREMIAS LEARY/BARRY Conf#: [id number] DID#: [id number]
[2016-11-12] MEDS: HEPARIN 5,000 UNIT/0.5 ML VIAL SC SCH ×2 (10:31→20:25)
[2016-11-12] MEDS: VANCOMYCIN 2 GM in SOD CHLORIDE 0.9% 500 ML IVPB SCH (10:31)
--- NOTE | 2016-11-12 13:37 | CONS ---
Date/Time of Note Date/Time of Note DATE: 11/12/16 TIME: 13:35 Assessment/Plan Assessment/Plan Chief Complaint/Hosp Course SUBJECTIVE: No acute changes. The patient is awake, looks comfortable, no fevers. ANTIMICROBIALS: The patient is on IV vancomycin and Levaquin. PHYSICAL EXAMINATION: GENERAL: This is a well-developed, well-nourished man who is in no distress. HEENT: Head atraumatic, normocephalic. Sclerae anicteric. Buccal mucosa dry. NECK: Supple, trachea midline. CHEST: Rise symmetrical. Breath sounds diminished to bases. HEART: S1, S2. ABDOMEN: Soft, bowel tones present. EXTREMITIES: Bilateral lower extremities erythema, edema and chronic wounds. ASSESSMENT: 1. Bilateral lower extremities, acute on chronic cellulitis, chronic venous stasis. 2. Acute renal failure, likely on chronic kidney disease, Nephrology on case. 3. History of deep venous thrombosis. 4. Hypertension. 5. Anemia. PLAN: The patient remains stable, wound cultures growing MIRI and PSA, will change abx to oral Cipro and topical Gentamicin. F/u podiatry rec-s DW pt/staff Problems: Consultation Date/Type/Reason Admit Date/Time November 09, 2016 at 14:15 Type of Consultation: ID Exam/Review of Systems Vital Signs Vitals Vital Signs Date Time Temp Pulse Resp B/P Pulse Ox O2 Delivery O2 Flow Rate FiO2 11/12/16 07:30 98.6 71 20 140/79 96 11/11/16 20:20 Room Air Intake and Output 11/11/16 11/11/16 11/12/16 15:00 23:00 07:00 Intake Total 1500 ml 1035 ml Output Total 2050 ml Balance -550 ml 1035 ml Results Result Diagram: 11/12/16 0420 11/12/16 0420 Results 24 hrs Laboratory Tests Test 11/12/16 04:20 11/12/16 12:38 White Blood Count 7.2 Red Blood Count 4.01 L Hemoglobin 10.5 L Hematocrit 32.7 L Mean Corpuscular Volume 81.5 L Mean Corpuscular Hemoglobin 26.2 L Mean Corpuscular Hemoglobin Concent 32.1 Red Cell Distribution Width 13.9 Platelet Count 148 # Mean Platelet Volume 9.6 Neutrophils % 65.0 Lymphocytes % 20.4 Monocytes % 9.7 Eosinophils % 3.9 Basophils % 0.4 Nucleated Red Blood Cells % 0.0 Neutrophils # 4.7 Lymphocytes # 1.5 Monocytes # 0.7 Eosinophils # 0.3 Basophils # 0.0 Nucleated Red Blood Cells # 0.0 Sodium Level 139 Potassium Level 3.9 Chloride Level 107 Carbon Dioxide Level 25 Anion Gap 11 Blood Urea Nitrogen 20 Creatinine 1.41 H Glucose Level 88 Calcium Level 8.7 Lab Scanned Report REFERENCE LAB Medications Medications Current Medications Aspirin 81 mg 81 mg DAILY PO Last administered on 11/12/16 10:23; Admin Dose 81 MG; Start 11/10/16 at 09:00 Levofloxacin/ Dextrose (Levaquin 500mg/ D5W 100 ml (Pmx)) 100 ml @ 100 mls/hr Q24H IVPB Last administered on 11/11/16 20:56; Admin Dose 100 MLS/HR; Start 11/09/16 at 18:00 Metoprolol Tartrate (Lopressor) 25 mg BID PO Last administered on 11/12/16 10: 22; Admin Dose 25 MG; Start 11/09/16 at 21:00 Hydralazine HCl (Apresoline) 10 mg Q6H PRN IV sbp>160mmhg; Start 11/09/16 at 18: 00 Famotidine (Pepcid) 20 mg DAILY PO Last administered on 11/12/16 10:23; Admin Dose 20 MG; Start 11/10/16 at 09:00 Docusate Sodium (Colace) 250 mg HS PO Last administered on 11/11/16 21:00; Admin Dose 250 MG; Start 11/09/16 at 21:00 Nifedipine (Procardia Xl) 30 mg BID PO Last administered on 11/12/16 10:23; Admin Dose 30 MG; Start 11/09/16 at 21:00 Acetaminophen/ Hydrocodone Bitart ([place] (7.5-325)) 1 tab Q6H PRN PO pain Last administered on 11/11/16 18:49; Admin Dose 1 TAB; Start 11/09/16 at 20:00 Senna/Docusate Sodium (Senokot-S) 1 tab Q6H PRN PO pain Last administered on 06:28; Admin Dose 1 TAB; Start 11/09/16 at 20:00 Hydromorphone HCl 0.5 mg 0.5 mg Q4H PRN IV PAIN Last administered on 11/12/16 06:31; Admin Dose 0.5 MG; Start 11/09/16 at 20:00 Vancomycin HCl/ Sodium Chloride (Vancocin/NS) 500 ml @ 125 mls/hr Q24H IVPB Last administered on 11/12/16 10:31; Admin Dose 125 MLS/HR; Start 11/10/16 at 11 :00 Heparin Sodium (Porcine) (Heparin (5000 Units/0.5 ml)) 5,000 unit BID SC Last administered on 11/12/16 10:31; Admin Dose 5,000 UNIT; Start 11/11/16 at 09:00 Collagenase (Santyl) 1 applic DAILY TOP Last administered on 11/12/16 09:00; Admin Dose 1 APPLIC; Start 11/10/16 at 15:00 Collagenase (Santyl) 1 applic PRN PRN TOP WOUND CARE; Start 11/10/16 at 15:00 Sodium Hypochlorite 1 applic 1 applic DAILY IRR Last administered on 11/12/16 10:21; Admin Dose 1 APPLIC; Start 11/11/16 at 09:00 Sodium Chloride 1,000 ml @ 50 mls/hr Q20H IV Last administered on 11/12/16 10 :24; Admin Dose 50 MLS/HR; Start 11/11/16 at 14:30 Sodium Chloride (NS) 1,000 ml @ 125 mls/hr Q8H IV Last administered on 00:25; Admin Dose 125 MLS/HR; Start 11/11/16 at 17:19; Stop 11/12/16 at 16: 18 MARISELA BYNUM NP November 12, 2016 13:37
--- NOTE | 2016-11-12 14:05 | PN ---
Date/Time of Note Date/Time of Note DATE: 11/12/16 TIME: 14:00 Assessment/Plan VTE Prophylaxis VTE Prophylaxis Intervention: heparin Lines/Catheters IV Catheter Type (from [facility]): Peripheral IV Urinary Cath still in place: No Assessment/Plan Chief Complaint/Hosp Course ASSESSMENT AND PLAN: 46-year-old male coming in with bilateral lower extremity infected ulcers with cellulitis, hypertension and renal insufficiency. 1. Lower extremity cellulitis and ulceration - pt followed by podiatry and vasc surgery teams. MRI, arterial and venous studies performed of LE's. S/p aortogram performed yesterday - pt has aortoiliac disease with complete occlusion of distal aorta which is chronic. The patient will need possible major vascular surgery based on this - f/u CV and vasc surgery rec's to better assess vasculature LE and tx options - f/u wound care nurse consult rec's as well - Continue current antibiotics as well per ID rec's. Pain control medications as well. - Follow up on final culture results. - Follow up ID recommendations. 2. Renal insufficiency. Renal function, creatinine slightly elevated. Follow up renal recommendations. Monitor BUN and creatinine levels as well. 3. Hypertension. Blood pressure is on the high normal side. Continue current medications. Consider increasing the dose. He is on beta josé miguel and hydralazine p.r.n. as well, also on nifedipine. Monitor for now. 4. Chronic peripheral artery disease. Again, continue wound care nurse recommendations for #1. Consider vascular surgery consult if not better. 5. Gastrointestinal prophylaxis. Pepcid. 6. Deep venous thrombosis prophylaxis on heparin subQ. Problems: Subjective 24 Hr Interval Summary Free Text/Dictation Pt had abdominal aortogram performed yesterday. Exam/Review of Systems Vital Signs Vitals Vital Signs Date Time Temp Pulse Resp B/P Pulse Ox O2 Delivery O2 Flow Rate FiO2 11/12/16 07:30 98.6 71 20 140/79 96 11/11/16 20:20 Room Air Intake and Output 11/11/16 11/11/16 11/12/16 15:00 23:00 07:00 Intake Total 1500 ml 1035 ml Output Total 2050 ml Balance -550 ml 1035 ml Exam GENERAL: The patient lying in bed, answering questions appropriately, in no acute distress. HEENT: Pupils equal, round, reactive to light. Extraocular muscles intact. NECK: Supple, no thyromegaly. LUNGS: Clear to auscultation bilaterally. CARDIOVASCULAR: S1, S2 heard. No rubs or gallops. ABDOMEN: Soft, nontender, nondistended. No rebound or guarding. MUSCULOSKELETAL: There are some large ulcers noted in the bilateral lower extremities, right greater than left, with surrounding erythema. Wounds are deep and go down to soft tissue and potentially even to the bone. NEUROLOGIC: No focal deficits. Results Result Diagram: 11/12/1641911/12/16419 Results 24 hrs Laboratory Tests Test 11/12/16 04:20 11/12/16 12:38 White Blood Count 7.2 Red Blood Count 4.01 L Hemoglobin 10.5 L Hematocrit 32.7 L Mean Corpuscular Volume 81.5 L Mean Corpuscular Hemoglobin 26.2 L Mean Corpuscular Hemoglobin Concent 32.1 Red Cell Distribution Width 13.9 Platelet Count 148 # Mean Platelet Volume 9.6 Neutrophils % 65.0 Lymphocytes % 20.4 Monocytes % 9.7 Eosinophils % 3.9 Basophils % 0.4 Nucleated Red Blood Cells % 0.0 Neutrophils # 4.7 Lymphocytes # 1.5 Monocytes # 0.7 Eosinophils # 0.3 Basophils # 0.0 Nucleated Red Blood Cells # 0.0 Sodium Level 139 Potassium Level 3.9 Chloride Level 107 Carbon Dioxide Level 25 Anion Gap 11 Blood Urea Nitrogen 20 Creatinine 1.41 H Glucose Level 88 Calcium Level 8.7 Lab Scanned Report REFERENCE LAB Medications Medications Current Medications Aspirin (Halfprin) 81 mg DAILY PO Last administered on 11/12/16 10:23; Admin Dose 81 MG; Start 11/10/16 at 09:00 Metoprolol Tartrate (Lopressor) 25 mg BID PO Last administered on 11/12/16 10: 22; Admin Dose 25 MG; Start 11/09/16 at 21:00 Hydralazine HCl (Apresoline) 10 mg Q6H PRN IV sbp>160mmhg; Start 11/09/16 at 18: 00 Famotidine (Pepcid) 20 mg DAILY PO Last administered on 11/12/16 10:23; Admin Dose 20 MG; Start 11/10/16 at 09:00 Docusate Sodium (Colace) 250 mg HS PO Last administered on 11/11/16 21:00; Admin Dose 250 MG; Start 11/09/16 at 21:00 Nifedipine (Procardia Xl) 30 mg BID PO Last administered on 11/12/16 10:23; Admin Dose 30 MG; Start 11/09/16 at 21:00 Acetaminophen/ Hydrocodone Bitart ([place] (7.5-325)) 1 tab Q6H PRN PO pain Last administered on 11/11/16 18:49; Admin Dose 1 TAB; Start 11/09/16 at 20:00 Senna/Docusate Sodium (Senokot-S) 1 tab Q6H PRN PO pain Last administered on 06:28; Admin Dose 1 TAB; Start 11/09/16 at 20:00 Hydromorphone HCl (Dilaudid) 0.5 mg Q4H PRN IV PAIN Last administered on 06:31; Admin Dose 0.5 MG; Start 11/09/16 at 20:00 Heparin Sodium (Porcine) (Heparin (5000 Units/0.5 ml)) 5,000 unit BID SC Last administered on 11/12/16 10:31; Admin Dose 5,000 UNIT; Start 11/11/16 at 09:00 Collagenase (Santyl) 1 applic DAILY TOP Last administered on 11/12/16 09:00; Admin Dose 1 APPLIC; Start 11/10/16 at 15:00 Collagenase (Santyl) 1 applic PRN PRN TOP WOUND CARE; Start 11/10/16 at 15:00 Sodium Hypochlorite 1 applic 1 applic DAILY IRR Last administered on 11/12/16 10:21; Admin Dose 1 APPLIC; Start 11/11/16 at 09:00 Sodium Chloride 1,000 ml @ 50 mls/hr Q20H IV Last administered on 11/12/16 10 :24; Admin Dose 50 MLS/HR; Start 11/11/16 at 14:30 Sodium Chloride (NS) 1,000 ml @ 125 mls/hr Q8H IV Last administered on 00:25; Admin Dose 125 MLS/HR; Start 11/11/16 at 17:19; Stop 11/12/16 at 16: 18 Ciprofloxacin (Cipro) 500 mg BID@06,18 PO ; Start 11/12/16 at 18:00 Gentamicin Sulfate (Gentamicin 0.1% Cr) 1 applic TID TOP ; Start 11/12/16 at 21: 00 THALIA AARON November 12, 2016 14:05
[2016-11-12] MEDS: CIPROFLOXACIN 500 MG TAB PO SCH (17:10)
--- NOTE | 2016-11-12 18:29 | CONS ---
Date/Time of Note Date/Time of Note DATE: 11/12/16 TIME: 18:27 Consult Date/Type/Reason Admit Date/Time November 09, 2016 at 14:15 Initial Consult Date 11/11/16 Type of Consultation: Endovascular Cardiology Objective Vital Signs Date Time Temp Pulse Resp B/P Pulse Ox O2 Delivery O2 Flow Rate FiO2 11/12/16 07:30 98.6 71 20 140/79 96 11/11/16 20:20 Room Air Intake and Output 11/11/16 11/11/16 11/12/16 15:00 23:00 07:00 Intake Total 1500 ml 1035 ml Output Total 2050 ml Balance -550 ml 1035 ml Results/Medications Result Diagram: 11/12/16 0420 11/12/16 0420 Results 24 hrs Laboratory Tests Test 11/12/16 04:20 11/12/16 12:38 White Blood Count 7.2 Red Blood Count 4.01 L Hemoglobin 10.5 L Hematocrit 32.7 L Mean Corpuscular Volume 81.5 L Mean Corpuscular Hemoglobin 26.2 L Mean Corpuscular Hemoglobin Concent 32.1 Red Cell Distribution Width 13.9 Platelet Count 148 # Mean Platelet Volume 9.6 Neutrophils % 65.0 Lymphocytes % 20.4 Monocytes % 9.7 Eosinophils % 3.9 Basophils % 0.4 Nucleated Red Blood Cells % 0.0 Neutrophils # 4.7 Lymphocytes # 1.5 Monocytes # 0.7 Eosinophils # 0.3 Basophils # 0.0 Nucleated Red Blood Cells # 0.0 Sodium Level 139 Potassium Level 3.9 Chloride Level 107 Carbon Dioxide Level 25 Anion Gap 11 Blood Urea Nitrogen 20 Creatinine 1.41 H Glucose Level 88 Calcium Level 8.7 Lab Scanned Report REFERENCE LAB Medications Current Medications Aspirin (Halfprin) 81 mg DAILY PO Last administered on 11/12/16 10:23; Admin Dose 81 MG; Start 11/10/16 at 09:00 Metoprolol Tartrate (Lopressor) 25 mg BID PO Last administered on 11/12/16 10: 22; Admin Dose 25 MG; Start 11/09/16 at 21:00 Hydralazine HCl (Apresoline) 10 mg Q6H PRN IV sbp>160mmhg; Start 11/09/16 at 18: 00 Famotidine (Pepcid) 20 mg DAILY PO Last administered on 11/12/16 10:23; Admin Dose 20 MG; Start 11/10/16 at 09:00 Docusate Sodium (Colace) 250 mg HS PO Last administered on 11/11/16 21:00; Admin Dose 250 MG; Start 11/09/16 at 21:00 Nifedipine (Procardia Xl) 30 mg BID PO Last administered on 11/12/16 10:23; Admin Dose 30 MG; Start 11/09/16 at 21:00 Acetaminophen/ Hydrocodone Bitart ([place] (7.5-325)) 1 tab Q6H PRN PO pain Last administered on 11/11/16 18:49; Admin Dose 1 TAB; Start 11/09/16 at 20:00 Senna/Docusate Sodium (Senokot-S) 1 tab Q6H PRN PO pain Last administered on 06:28; Admin Dose 1 TAB; Start 11/09/16 at 20:00 Hydromorphone HCl (Dilaudid) 0.5 mg Q4H PRN IV PAIN Last administered on 06:31; Admin Dose 0.5 MG; Start 11/09/16 at 20:00 Heparin Sodium (Porcine) (Heparin (5000 Units/0.5 ml)) 5,000 unit BID SC Last administered on 11/12/16 10:31; Admin Dose 5,000 UNIT; Start 11/11/16 at 09:00 Collagenase (Santyl) 1 applic DAILY TOP Last administered on 11/12/16 09:00; Admin Dose 1 APPLIC; Start 11/10/16 at 15:00 Collagenase (Santyl) 1 applic PRN PRN TOP WOUND CARE; Start 11/10/16 at 15:00 Sodium Hypochlorite 1 applic 1 applic DAILY IRR Last administered on 11/12/16 10:21; Admin Dose 1 APPLIC; Start 11/11/16 at 09:00 Sodium Chloride (NS) 1,000 ml @ 50 mls/hr Q20H IV Last administered on 10:24; Admin Dose 50 MLS/HR; Start 11/11/16 at 14:30 Ciprofloxacin (Cipro) 500 mg BID@06,18 PO Last administered on 11/12/16 17:10 ; Admin Dose 500 MG; Start 11/12/16 at 18:00 Gentamicin Sulfate (Gentamicin 0.1% Cr) 1 applic TID TOP ; Start 11/12/16 at 21: 00 Assessment/Plan Chief Complaint/Hosp Course Patient is 46 year old male with PMH of Severe venous stasis ulcer as well as PAD, went to vein clinic were he had US done and found to have monophasic bilateral waveforms. suggestive of aorto iliac diseae, he was sent to [facility] for that. he does have severe claudicaiotn , lifestyle limiting. CKD with cr 1.5. had venous statis ulcer bilateral legs. Problems: Additional Assessment/Plan Patient with angio yesterday found to have occluded aorta and iliacs occluded subclavian Pt will need out pt cardiac work up for re op as well as [facility] vascular surgery f.u pt and family understant its not an emergency for surgery he need complete cardiac work up before she goes through major vascular surgery. will /fu D/C home in AM with out pt f/u and I have given info about [facility] vascular surgery for uninsured patient for non imergent issue. CATRACHITO MOLINA MD November 12, 2016 18:29
[2016-11-12] MEDS: GENTAMICIN 0.1% CREAM 15GM TUBE TOP SCH (20:23)
[2016-11-12] MEDS: DOCUSATE SODIUM 250 MG CAP PO SCH (20:23)
[2016-11-12 21:04] VITALS: BP 137/79; RESP 20
--- NOTE | 2016-11-12 23:17 | CONS ---
DATE OF ADMISSION: 11/09/2016 DATE OF CONSULTATION: 11/12/2016 SUBJECTIVE FINDINGS: The patient being followed for bilateral lower extremity, currently using Robby yl. The patient has had angiography revealing occluded distal aorta to bilateral common iliac arter y occlusion and the patient may be also a bypass candidate pending discharge. The patient denies an y fever, nausea, vomiting. OBJECTIVE FINDINGS: Temperature 98.3, pulse is 92, respiratory rate 20, blood pressure 137/79. Puls e ox is 96%. Patient lying supine in no acute distress. Regular respirations, unlabored. Multiple ulcerations, bilateral lower extremity. Chronic venous stasis with hyperpigmentation. Cellulitis is decreasing. There is left medial calf ulceration, 5 x 3 cm. Left lateral toe ulceration is appr oximately 2 cm2, and right medial calf ulceration 6.3 cm2. Mild edema bilateral lower extremities. LABORATORIES: Wound cultures: Pseudomonas on the right ankle, and on the left, pseudomonas with St aphylococcus aureus. ASSESSMENT: 1. Bilateral lower extremity cellulitis. 2. Infection with pseudomonas and methicillin sensitive Staphylococcus aureus. 3. Venous stasis with ulceration and edema. 4. Peripheral arterial disease with aortoiliac occlusion. PLAN: Patient has had angiography. May be a candidate for aortoiliac bypass. Recommendations are given to him. Continue inpatient wound care with benefit. Follow up as an outpatient. Patient edu cation was provided. Dictated By: GOLD ANGLIN/BARRY Conf#: [id number] DID#: [id number]
[2016-11-13] MEDS: CIPROFLOXACIN 500 MG TAB PO SCH ×2 (05:15→18:14)
[2016-11-13] MEDS: HYDROmorphONE 1 MG/ML SYG IV PRN ×2 (05:15→10:46)
[2016-11-13 07:19] LABS: CALCIUM 8.6 mg/dl (8.4-10.2); CREATININE 1.47 mg/dl (0.61-1.24); MAGNESIUM 1.8 mg/dl (1.7-2.5); PHOSPHORUS 4.1 mg/dl (2.5-4.9); POTASSIUM 3.8 mmol/L (3.5-5.1)
[2016-11-13] MEDS: SOD CHLORIDE 0.9% 1,000 ML IV SCH (07:29)
[2016-11-13 07:35] VITALS: BP 134/79; RESP 20
[2016-11-13] MEDS: METOPROLOL 25 MG TAB PO SCH (09:10)
[2016-11-13] MEDS: ASPIRIN (EC) 81 MG TAB PO SCH (09:10)
[2016-11-13] MEDS: FAMOTIDINE 20 MG TAB PO SCH (09:10)
[2016-11-13] MEDS: NIFEdipine (XL) 30 MG TAB PO SCH (09:11)
[2016-11-13] MEDS: HEPARIN 5,000 UNIT/0.5 ML VIAL SC SCH (09:15)
[2016-11-13] MEDS: COLLAGENASE 30 GM TUBE TOP SCH (09:18)
[2016-11-13] MEDS: SODIUM HYPOCHLORITE 1/40% 1L IRRIG IRR SCH (09:18)
[2016-11-13] MEDS: GENTAMICIN 0.1% CREAM 15GM TUBE TOP SCH ×2 (09:18→18:15)
--- NOTE | 2016-11-13 10:09 | CONS ---
Date/Time of Note Date/Time of Note DATE: 11/13/16 TIME: 10:03 Assessment/Plan Assessment/Plan Chief Complaint/Hosp Course 1. Bilateral lower extremity cellulitis. Continue IV Abx. 2. Infection with pseudomonas and methicillin sensitive Staphylococcus aureus. Continue IV Abx. 3. Venous stasis with ulceration and edema. Bedside debridement as needed. Continue local wound care with gentamicin, santyl, non-adherent, DSD. 4. Peripheral arterial disease with aortoiliac occlusion. As per [facility] Specialist/PCP. Problems: Consultation Date/Type/Reason Admit Date/Time November 09, 2016 at 14:15 Initial Consult Date 11/11/16 Type of Consultation: Endovascular Cardiology Reason for Consultation Bilateral LE venous ulcers. 24 HR Interval Summary Free Text/Dictation Coverage for Dr. Lozano. B/L LE venous ulcerations. Exam/Review of Systems Vital Signs Vitals Vital Signs Date Time Temp Pulse Resp B/P Pulse Ox O2 Delivery O2 Flow Rate FiO2 11/13/16 07:35 98.6 88 20 134/79 96 11/11/16 20:20 Room Air Intake and Output 11/12/16 11/12/16 11/13/16 15:00 23:00 07:00 Intake Total 1115 ml 1890 ml Balance 1115 ml 1890 ml Exam 1. Bilateral lower extremity cellulitis. Left calf, medial 5x3cm. Right calf , medial 5x6cm. 2. Infection with pseudomonas and methicillin sensitive Staphylococcus aureus. 3. Venous stasis with ulceration and edema. 4. Peripheral arterial disease with aortoiliac occlusion. Results Result Diagram: 11/12/16 0420 11/13/16 0545 Results 24 hrs Laboratory Tests Test 11/12/16 12:38 11/13/16 05:45 Lab Scanned Report REFERENCE LAB Sodium Level 136 Potassium Level 3.8 Chloride Level 107 Carbon Dioxide Level 22 Anion Gap 11 Blood Urea Nitrogen 22 H Creatinine 1.47 H Glucose Level 100 Calcium Level 8.6 Phosphorus Level 4.1 Magnesium Level 1.8 Medications Medications Current Medications Aspirin (Halfprin) 81 mg DAILY PO Last administered on 11/13/16 09:10; Admin Dose 81 MG; Start 11/10/16 at 09:00 Metoprolol Tartrate (Lopressor) 25 mg BID PO Last administered on 11/13/16 09: 10; Admin Dose 25 MG; Start 11/09/16 at 21:00 Hydralazine HCl (Apresoline) 10 mg Q6H PRN IV sbp>160mmhg; Start 11/09/16 at 18: 00 Famotidine (Pepcid) 20 mg DAILY PO Last administered on 11/13/16 09:10; Admin Dose 20 MG; Start 11/10/16 at 09:00 Docusate Sodium (Colace) 250 mg HS PO Last administered on 11/12/16 20:23; Admin Dose 250 MG; Start 11/09/16 at 21:00 Nifedipine (Procardia Xl) 30 mg BID PO Last administered on 11/13/16 09:11; Admin Dose 30 MG; Start 11/09/16 at 21:00 Acetaminophen/ Hydrocodone Bitart ([place] (7.5-325)) 1 tab Q6H PRN PO pain Last administered on 11/11/16 18:49; Admin Dose 1 TAB; Start 11/09/16 at 20:00 Senna/Docusate Sodium (Senokot-S) 1 tab Q6H PRN PO pain Last administered on 06:28; Admin Dose 1 TAB; Start 11/09/16 at 20:00 Hydromorphone HCl (Dilaudid) 0.5 mg Q4H PRN IV PAIN Last administered on 05:15; Admin Dose 0.5 MG; Start 11/09/16 at 20:00 Heparin Sodium (Porcine) (Heparin (5000 Units/0.5 ml)) 5,000 unit BID SC Last administered on 11/13/16 09:15; Admin Dose 5,000 UNIT; Start 11/11/16 at 09:00 Collagenase (Santyl) 1 applic DAILY TOP Last administered on 11/13/16 09:18; Admin Dose 1 APPLIC; Start 11/10/16 at 15:00 Collagenase (Santyl) 1 applic PRN PRN TOP WOUND CARE Last administered on 22:32; Admin Dose 1 APPLIC; Start 11/10/16 at 15:00 Sodium Hypochlorite ([place] ([place] 1/40%)) 1 applic DAILY IRR Last administered on 11/13/16 09:18; Admin Dose 1 APPLIC; Start 11/11/16 at 09:00 Ciprofloxacin (Cipro) 500 mg BID@06,18 PO Last administered on 11/13/16 05:15 ; Admin Dose 500 MG; Start 11/12/16 at 18:00 Gentamicin Sulfate (Gentamicin 0.1% Cr) 1 applic TID TOP Last administered on 09:18; Admin Dose 1 APPLIC; Start 11/12/16 at 21:00 CRISTAL SELLERS DPM November 13, 2016 10:09
--- NOTE | 2016-11-13 10:52 | PN ---
DATE: 11/13/2016 SUBJECTIVE: The patient is stable, no acute events overnight. No fevers, chills, nausea or vomitin g. No shortness of breath. OBJECTIVE: VITAL SIGNS: Blood pressure is 134/79, respirations 20, pulse 88, temperature 98.6. HEENT: Head is normocephalic. NECK: Supple. HEART: Regular rate. LUNGS: Show diminished breath sounds at the bases. ABDOMEN: Soft, nontender to palpation. No rebound or guarding. EXTREMITIES: Negative for clubbing, cyanosis. No edema. DERMATOLOGIC: No rashes. MUSCULOSKELETAL: No joint effusions. NEUROLOGIC: No change in exam. MEDICATIONS: The patient's medications have been reviewed. LABORATORY DATA: Shows sodium 136, potassium 3.8, BUN 22, creatinine 1.47. White count 7.2, hemogl obin 10.5, hematocrit 32.7, platelet count 148. ASSESSMENT AND PLAN: 1. Chronic kidney disease likely secondary to hypertensive nephrosclerosis. The patient's renal fu nction is stable. There is no evidence of contrast-associated nephropathy. We will discontinue IV fluids. Otherwise, continue supportive care, renally dose all meds, avoid nephrotoxins. 2. Hypertension. Continue current blood pressure regimen. 3. Mineral bone disorder. Continue to monitor calcium and phosphorus levels. 4. Anemia of chronic disease. Continue to monitor hemoglobin and hematocrit levels. 5. Peripheral vascular disease. The patient has been evaluated by podiatry. May require outpatien t bypass surgery. 6. Lower extremity cellulitis. Continue current antibiotic regimen. Dictated By: JEREMIAS LEARY/BARRY Conf#: [id number] DID#: [id number]
--- NOTE | 2016-11-13 13:46 | CONS ---
Date/Time of Note Date/Time of Note DATE: 11/13/16 TIME: 13:45 Assessment/Plan Assessment/Plan Chief Complaint/Hosp Course SUBJECTIVE: No acute changes. The patient is awake, looks comfortable, no fevers. ANTIMICROBIALS: Cipro, Gentamicin topical Micro: wound cx + PSA/MIRI PHYSICAL EXAMINATION: GENERAL: This is a well-developed, well-nourished man who is in no distress. HEENT: Head atraumatic, normocephalic. Sclerae anicteric. Buccal mucosa dry. NECK: Supple, trachea midline. CHEST: Rise symmetrical. Breath sounds diminished to bases. HEART: S1, S2. ABDOMEN: Soft, bowel tones present. EXTREMITIES: Bilateral lower extremities erythema, edema and chronic wounds. ASSESSMENT: 1. Bilateral lower extremities, acute on chronic cellulitis, chronic venous stasis. 2. Acute renal failure, likely on chronic kidney disease, Nephrology on case. 3. History of deep venous thrombosis. 4. Hypertension. 5. Peripheral arterial disease with aortoiliac occlusion PLAN: The patient remains stable, continue oral Cipro and topical Gentamicin. F /u podiatry/vascular rec-s===>will require vascular surgery with aorto iliac bypass. May need possible CTA before surgery. DW pt/staff Problems: Consultation Date/Type/Reason Admit Date/Time November 09, 2016 at 14:15 Type of Consultation: ID Exam/Review of Systems Vital Signs Vitals Vital Signs Date Time Temp Pulse Resp B/P Pulse Ox O2 Delivery O2 Flow Rate FiO2 11/13/16 07:35 98.6 88 20 134/79 96 11/11/16 20:20 Room Air Intake and Output 11/12/16 11/12/16 11/13/16 15:00 23:00 07:00 Intake Total 1115 ml 1890 ml Balance 1115 ml 1890 ml Results Result Diagram: 11/12/16 0420 11/13/16 0545 Results 24 hrs Laboratory Tests Test 11/13/16 05:45 Sodium Level 136 Potassium Level 3.8 Chloride Level 107 Carbon Dioxide Level 22 Anion Gap 11 Blood Urea Nitrogen 22 H Creatinine 1.47 H Glucose Level 100 Calcium Level 8.6 Phosphorus Level 4.1 Magnesium Level 1.8 Medications Medications Current Medications Aspirin (Halfprin) 81 mg DAILY PO Last administered on 11/13/16t 09:10; Admin Dose 81 MG; Start 11/10/16 at 09:00 Metoprolol Tartrate (Lopressor) 25 mg BID PO Last administered on 11/13/16 09: 10; Admin Dose 25 MG; Start 11/09/16 at 21:00 Hydralazine HCl (Apresoline) 10 mg Q6H PRN IV sbp>160mmhg; Start 11/09/16 at 18: 00 Famotidine (Pepcid) 20 mg DAILY PO Last administered on 11/13/16 09:10; Admin Dose 20 MG; Start 11/10/16 at 09:00 Docusate Sodium (Colace) 250 mg HS PO Last administered on 11/12/16 20:23; Admin Dose 250 MG; Start 11/09/16 at 21:00 Nifedipine (Procardia Xl) 30 mg BID PO Last administered on 11/13/16 09:11; Admin Dose 30 MG; Start 11/09/16 at 21:00 Acetaminophen/ Hydrocodone Bitart ([place] (7.5-325)) 1 tab Q6H PRN PO pain Last administered on 11/11/16 18:49; Admin Dose 1 TAB; Start 11/09/16 at 20:00 Senna/Docusate Sodium (Senokot-S) 1 tab Q6H PRN PO pain Last administered on 06:28; Admin Dose 1 TAB; Start 11/09/16 at 20:00 Hydromorphone HCl (Dilaudid) 0.5 mg Q4H PRN IV PAIN Last administered on 10:46; Admin Dose 0.5 MG; Start 11/09/16 at 20:00 Heparin Sodium (Porcine) (Heparin (5000 Units/0.5 ml)) 5,000 unit BID SC Last administered on 11/13/16 09:15; Admin Dose 5,000 UNIT; Start 11/11/16 at 09:00 Collagenase (Santyl) 1 applic DAILY TOP Last administered on 11/13/16 09:18; Admin Dose 1 APPLIC; Start 11/10/16 at 15:00 Collagenase (Santyl) 1 applic PRN PRN TOP WOUND CARE Last administered on 22:32; Admin Dose 1 APPLIC; Start 11/10/16 at 15:00 Sodium Hypochlorite ([place]akin'S (Dilute 1/40%)) 1 applic DAILY IRR Last administered on 11/13/16 09:18; Admin Dose 1 APPLIC; Start 11/11/16 at 09:00 Ciprofloxacin (Cipro) 500 mg BID@06,18 PO Last administered on 11/13/16 05:15 ; Admin Dose 500 MG; Start 11/12/16 at 18:00 Gentamicin Sulfate (Gentamicin 0.1% Cr) 1 applic TID TOP Last administered on 09:18; Admin Dose 1 APPLIC; Start 11/12/16 at 21:00 MARISELA BYNUM NP November 13, 2016 13:46
--- NOTE | 2016-11-13 15:20 | PDOCDIS ---
Discharge Instructions CONDITION Patient Condition: Stable HOME CARE INSTRUCTIONS: Special Diet: Low Chol, Low Fat ACTIVITY: Activity Restrictions: Slowly Increase Activity FOLLOW UP/APPOINTMENTS Appointments Please take your medications as prescribed, see your doctor in the clinic in 1 week. THALIA AARON November 13, 2016 15:20
[2016-11-13] MEDS ORDERED: METO-448 PO (15:21)
[2016-11-13] MEDS ORDERED: SAN30GM TOP (15:21)
[2016-11-13] MEDS ORDERED: GENT15CR TOP (15:21)
[2016-11-13] MEDS ORDERED: CIPR500T4 PO (15:21)
[2016-11-13] MEDS ORDERED: NIFE30TA2 PO (15:21)
--- NOTE | 2016-11-13 15:53 | DS ---
DATE OF ADMISSION: 11/09/2016 DATE OF DISCHARGE: 11/13/2016 HOSPITAL COURSE: This is a 46-year-old male originally admitted on 11/09/2016, being discharged quique e on 11/13/2016. The patient came in initially, sent in from clinic, because of bilateral lower ext remity infected ulcers with cellulitis. He was admitted, seen by multiple specialists during the [facility] stay including vascular, cardiology team, infectious disease team, podiatry team and renal te am. The patient was placed on broad-spectrum antibiotics. He was found with lower extremity cellul itis and ulcerations which were managed both by vascular surgery and podiatry teams as mentioned. T he patient also was thought to have peripheral vascular disease as well. He had an aortogram perfor [facility] as well that showed aortoiliac disease with complete occlusion of the distal aorta, which is chr onic, and the patient may need possible vascular surgery for this as an outpatient. Regarding his l ower extremity cellulitis and ulcerations, he was again treated by wound care team, placed on antibi otics. His wound cultures did come back positive Pseudomonas that was sensitive to the antibiotics that were written for. The patient had no significant leukocytosis, no fevers. He was able to ambu late and tolerate a p.o. diet. His blood pressure was managed as well, although titrations made to his blood pressure medications as well. After getting clearance from the consulting teams, he will be discharged home today in improved condition. DISCHARGE MEDICATIONS: He will be sent with: 1. Cipro 500 mg p.o. b.i.d. for 7 days. 2. Santyl apply topically daily. 3. Gentamicin cream apply topically t.i.d. 4. Metoprolol 25 mg b.i.d. 5. Nifedipine 30 mg b.i.d. 6. Aspirin 81 mg daily. FOLLOWUP: He will need cardiac workup as an outpatient, most likely at [facility] because he will need, again as mentioned above, major vascular surgery for this peripheral vascular disease. He will followup with the podiatry team as well in the clinic in the next 1 to 2 weeks. FINAL DIAGNOSES: 1. Lower extremity cellulitis and ulceration, status post medical treatment. 2. Aortoiliac disease with a complete occlusion of distal aorta which is chronic. Will need outpat ient major vascular surgery for this. 3. Renal insufficiency. 4. Essential hypertension. 5. Chronic peripheral vascular disease. Time spent discharging patient 45 minutes. Dictated By: THALIA DHALIWAL Conf#: [id number] DID#: [id number]
== END 2016-11-13 19:17 | disposition home or self-care (01) | DRG 300 ==
LOC: FTE 12:49 → PP2 14:15
PROVIDERS: ADMIT Family Medicine; ATTEND Family Medicine
PROC: B4001ZZ Plain Radiography of Abdominal Aorta using Low Osmolar Contrast (ICD-10-PCS; principal; 2016-11-12)
DX: I70.238 Atherosclerosis of native arteries of right leg with ulceration of other part of lower leg (principal); I83.208 Varicose veins of unspecified lower extremity with both ulcer of other part of lower extremity and inflammation; N17.9 Acute kidney failure, unspecified; I82.511 Chronic embolism and thrombosis of right femoral vein; L03.115 Cellulitis of right lower limb; L03.116 Cellulitis of left lower limb; L97.819 Non-pressure chronic ulcer of other part of right lower leg with unspecified severity; I70.248 Atherosclerosis of native arteries of left leg with ulceration of other part of lower leg; L97.829 Non-pressure chronic ulcer of other part of left lower leg with unspecified severity; Z87.891 Personal history of nicotine dependence; D63.8 Anemia in other chronic diseases classified elsewhere; Z79.82 Long term (current) use of aspirin; I12.9 Hypertensive chronic kidney disease with stage 1 through stage 4 chronic kidney disease, or unspecified chronic kidney disease; N18.9 Chronic kidney disease, unspecified; B96.5 Pseudomonas (aeruginosa) (mallei) (pseudomallei) as the cause of diseases classified elsewhere; B95.62 Methicillin resistant Staphylococcus aureus infection as the cause of diseases classified elsewhere
CPT/HCPCS: 36415; 71010; 73718; 75630; 75716; 75756; 76775; 80048; 80053; 80061; 80307; 81001; 81003; 82043; 82306; 83036; 83605; 83735; 83970; 84100; 84155; 84300; 84443; 84484; 85025; 85610; 85730; 86850; 86870; 86900; 86901; 87040; 87070; 87086; 93005; 93922; 93970; 96374; 96375; C1769; C1887; C1894; J0360; J1170; J1644; J1956; J2270; J2405; J2543; J3010; J3370; J7030; J7040; J7050; Q9967